=== PATIENT | female | born 1950 | race Caucasian/White ===

== ENCOUNTER 2020-01-06 07:51 | Outpatient (CLI) | payer MEDICARE, SELFPAY ==
[2020-01-06 08:08] LABS: Basophils Absolute Auto 0.1 K/mm3 (0.0-0.1); Basophils Percent Auto 1.3 % (0.2-1.2); Eosinophils Absolute Auto 0.2 K/mm3 (0-0.3); Eosinophils Percent Auto 4.4 % (0-4.4); Hematocrit 39.4 % (37.0-47.0); Hemoglobin 13.2 g/dL (12.0-15.0); Immature Granulocyte Absolute 0.01 K/mm3 (0.00-0.031); Immature Granulocyte Percent A 0.3 % (0-0.5); Lymphocytes Absolute Auto 1.28 K/mm3 (0.9-3.2); Lymphocytes Percent Auto 32.9 % (18.3-44.2); Mean Corpuscular HGB Conc 33.5 g/dl (32-36); Mean Corpuscular Volume 95.4 fl (80-100); Mean Platelet Volume 9.6 fl (7.4-10.4); Monocytes Absolute Auto 0.5 K/mm3 (0.1-0.6); Monocytes Percent Auto 13.1 % (2.6-8.5); Neutrophils Absolute Auto 1.9 K/mm3 (1.3-6.7); Platelet Count Result 172 k/mm3 (150-375); Red Blood Count 4.13 M/mm3 (4.2-5.4); Red Cell Distribution Width 13.2 % (11.5-14.5); White Blood Count 3.9 K/mm3 (4.5-10.0)
[2020-01-06 08:21] LABS: Alanine Aminotransferase 28 U/L (4-35); Albumin Level 4.6 g/dL (3.5-5.1); Alkaline Phosphatase 57 U/L (38-126); Amylase 65 U/L (30-110); Aspartate Amino Transferase 27 U/L (14-36); Bilirubin,Total 0.6 mg/dL (0.2-1.3); Blood Urea Nitrogen 11 mg/dL (7-17); Calcium 9.9 mg/dL (8.4-10.2); Carbon Dioxide 29 mmol/L (22-30); Chloride 103 mmol/L (98-107); Estimated Glomerular Filt Rate > 60; Glucose 110 mg/dL (65-105); Lipase 47 U/L (23-300); Potassium 4.3 mmol/L (3.4-5.0); Sodium 137 mmol/L (137-145)
[2020-01-06 08:36] LABS: Erythrocyte Sedimentation Rate 25 mm/hr (0-20)
== END 2020-01-06 07:52 | disposition home or self-care (01) ==
LOC: ANHLAB 07:53
PROVIDERS: PCP Internal Medicine; Visit Provider Clinical Nurse Specialist
DX: R19.7 Diarrhea, unspecified (principal); E55.9 Vitamin D deficiency, unspecified; I10 Essential (primary) hypertension
CPT/HCPCS: 36415; 80053; 82150; 82306; 83690; 84443; 85025; 85652

== ENCOUNTER 2020-01-14 10:42 | Outpatient (CLI) | payer MEDICARE, SELFPAY ==
--- NOTE | ~2020-01-14 | CT_ITS ---
EXAMINATION: CT abdomen pelvis wo con DATE: 01/14/2020 11:28 INDICATION: Low abdominal pain. TECHNIQUE: Computed tomography (CT) of the abdomen and pelvis was performed without intravenous contr ast. Automated exposure control and iterative reconstruction technique were employed. The dose-length product was 525.00 mGy-cm. COMPARISON: CT abdomen and pelvis 10/31/2016 FINDINGS: The visualized portions of the lung bases demonstrate mild atelectasis and mild chronic emmie g disease. No pleural effusion. The heart size is normal. There are coronary artery calcifications. N o pericardial effusion. There is diffuse hepatic steatosis. The gallbladder, spleen, pancreas, adrena l glands, and kidneys are normal. There is no urolithiasis. There is diverticulosis of the colon with out evidence of diverticulitis. There are no dilated loops of bowel. The appendix is not visualized. There are no pathologically enlarged lymph nodes. There is no free intraperitoneal fluid. There is se jenna lumbar spondylosis. IMPRESSION: 1. Diffuse hepatic steatosis. Reviewed, dictated and finalized at location A.
== END 2020-01-14 10:43 | disposition home or self-care (01) ==
PROVIDERS: PCP Internal Medicine; Visit Provider Clinical Nurse Specialist
DX: R10.9 Unspecified abdominal pain (principal); K76.0 Fatty (change of) liver, not elsewhere classified
CPT/HCPCS: 74176

== ENCOUNTER 2020-03-12 07:39 | Inpatient (IN) | payer MEDICARE, SELFPAY ==
[2020-03-12] VITALS (13 sets, daily range): BP systolic 91–135; BP diastolic 52–77; PULSE 72–82; RESP 16–28; TEMP 36.6–39.2; O2SAT 78–99; BMI 29.2
--- NOTE | 2020-03-12 08:04 | ED.NAVMDI ---
HPI - Nausea/Vomiting/Diarrhea General Chief complaint: Nausea/Vomiting/Diarrhea Stated complaint: COVID +, n/v, weak Time Seen by Provider: 03/12/20 07:51 History of Present Illness HPI Narrative: Patient is a 69-year-old female who presents ER with nausea and vomiting. Patient reports she started having the symptoms yesterday and is also associated with loose stools. Patient also reports being symptomatic for COVID for the last 10 days and being positive for the last week. She has had runny nose with sore throat and some cough. She has had fevers previously. She has no shortness of breath. Patient unsure why she is getting nauseated and throwing up. She has not found any medications to help this. Related Data Home Medications Medication Instructions Recorded Confirmed calcium polycarbophil [FiberCon] 1,250 mg PO BID 03/12/20 03/12/20 Allergies Allergy/AdvReac Type Severity Reaction Status Date / Time azithromycin Allergy Unknown rash Verified 03/12/20 07:56 Review of Systems Review of Systems: All systems reviewed & are unremarkable except as noted in HPI and below Constitutional: Constitutional: Denies chills, Reports fever(s) and Reports weakness ENT: Reports nasal congestion and Reports sore throat Respiratory: Respiratory: Reports cough, Denies dyspnea and Denies wheezing Gastrointestinal: Gastrointestinal: Denies abdominal pain, Reports diarrhea, Reports nausea and Reports vomiting PMFSH Past Medical History Medical History (Updated 03/12/20 @ 19:20 by Hira Lopez MD) Colon polyps COVID-19 Degenerative joint disease Diverticulitis Essential hypertension History of basal cell cancer Hyperlipidemia Osteopenia Skin cancer Surgical History Surgical History (Updated 03/12/20 @ 15:33 by Lyndsey Buckley PA-C) History of arthroplasty of right knee (~2011) History of arthroscopy of right knee History of foot surgery (~02/2011) Right calcaneus fracture status post reduction and percutaneous fixation with subsequent hardware removal. History of tonsillectomy History of total hysterectomy with bilateral salpingo-oophorectomy (BSO) (~1998) History of tubal ligation Family History Family History Mother Hypertension Sibling Patient's brother is in good health Father Family history of malignant neoplasm of brain, Onset Age: 34 Social History Social History (Updated 03/12/20 @ 15:34 by Lyndsey Buckley PA-C) Social History: Surrogate decision maker: Code status: Smoking packs per day: 1 Smoking cigarettes per day: 20.0 Years smoked: 25 Smoking pack-years: 25.00 Smoking status: Former smoker Smoking end date: 07/09/95 Alcohol intake: current Drinks per week: 3 Substance use: never Additional living arrangements comments: Lives in [place] with her spouse. Spiritual care concerns: No Exam Narrative: Exam Narrative: GENERAL: Well-appearing, well-nourished, and in no acute distress. HEAD: Normocephalic, atraumatic. ENT: Mucous membranes moist. CHEST: Clear to auscultation. No respiratory distress. HEART: Regular rate and rhythm. Normal peripheral pulses. ABDOMEN: Soft, nontender, nondistended. EXTREMITIES: Normal range of motion. No edema. NEURO: Alert and oriented x3. PSYCH: Normal mood and affect. Course Course Emergency Course: Admit to the hospitalist service. Patient with profound dehydration as well as hyponatremia. Vital Signs Vital signs: Vital Signs Temperature 98.6 F 03/12/20 07:49 Pulse Rate 80 03/12/20 07:49 Respiratory Rate 16 03/12/20 07:49 Blood Pressure 131/60 03/12/20 07:49 Pulse Oximetry 99 03/12/20 07:49 Temperature 98 F 03/12/20 16:54 Pulse Rate 72 03/12/20 16:54 Respiratory Rate 18 03/12/20 16:54 Blood Pressure 110/59 L 03/12/20 16:54 Pulse Oximetry 98 03/12/20 16:54 MDM - Nausea/Vomiting/Diarr
[2020-03-12 08:10] LABS: Basophils Percent Auto 0.3 % (0.2-1.2); Hematocrit 36.9 % (37.0-47.0); Hemoglobin 13.1 g/dL (12.0-15.0); Immature Granulocyte Absolute 0.02 K/mm3 (0.00-0.031); Immature Granulocyte Percent A 0.7 % (0-0.5); Immature Platelet Fraction Pct 6.2 % (0.9-11.2); Lymphocytes Absolute Auto 0.47 K/mm3 (0.9-3.2); Lymphocytes Percent Auto 15.8 % (18.3-44.2); Mean Corpuscular HGB Conc 35.5 g/dl (32-36); Mean Corpuscular Hemoglobin 31.7 pg (26-34); Mean Corpuscular Volume 89.3 fl (80-100); Mean Platelet Volume 10.8 fl (7.4-10.4); Monocytes Absolute Auto 0.4 K/mm3 (0.1-0.6); Monocytes Percent Auto 13.4 % (2.6-8.5); Neutrophils Absolute Auto 2.1 K/mm3 (1.3-6.7); Neutrophils Percent Auto 69.8 % (45.5-73.1); Platelet Count Result 142 k/mm3 (150-375); Red Blood Count 4.13 M/mm3 (4.2-5.4); Red Cell Distribution Width 13.3 % (11.5-14.5)
[2020-03-12 08:22] LABS: Alanine Aminotransferase 24 U/L (4-35); Albumin Level 3.9 g/dL (3.5-5.1); Alkaline Phosphatase 65 U/L (38-126); Anion Gap 13 mmol/L (8-16); Aspartate Amino Transferase 29 U/L (14-36); Bilirubin,Total 0.7 mg/dL (0.2-1.3); Blood Urea Nitrogen 25 mg/dL (7-17); Calcium 8.8 mg/dL (8.4-10.2); Carbon Dioxide 21 mmol/L (22-30); Chloride 88 mmol/L (98-107); Estimated CRCL calculation 35 ml/min; Estimated Glomerular Filt Rate 44; Glucose 109 mg/dL (65-105); Lipase 42 U/L (23-300); Potassium 3.5 mmol/L (3.4-5.0); Sodium 122 mmol/L (137-145)
[2020-03-12 08:30] LABS: Add Urine Microscopic? YES; Appearance Urine Clear (Clear); Bilirubin Urine Negative (Negative); Blood Urine Negative (Negative); Color Urine Yellow (Yellow); Glucose Urine UA Negative (Negative); Hyaline Casts Urine 50+ /lpf; Ketones Urine Trace mg/dL (Negative); Leukocyte Esterase Ur Negative LEU/UL (Negative); Mucus Urine Rare /lpf; Nitrate Urine Negative (Negative); Protein Urine Negative (Negative); Specific Grav Ur 1.013 (1.001-1.035); Squamous Epithelial Cell Urine Few /hpf (Few); Urobilinogen Urine Negative mg/dL (<2.0)
--- NOTE | 2020-03-12 12:14 | PC.NURSE ---
This patient, Emeli Talley, was admitted to [facility] Surg Room 327-01. Patient/family oriented to hospital policies and general routines including ID bracelet, bed and alarms, visiting hours, pain management, procedures, bathroom and other care routines, personal items, smoking policy, room service/diet, and visiting hours. Valuables list has been completed. Information on how to activate the Rapid Response Team has been discussed. Patient/Family are encouraged to report perceived risks to care and to ask questions if they do not understand what they are told or what they should do.
[2020-03-12] MEDS: SODIUM CHLORIDE 0.9% IV 1,000 ML 125 ML IV CONT (12:29)
[2020-03-12] MEDS: ACETAMINOPHEN 325 MG TABLET 650 MG PO ×2 (12:32→20:25)
[2020-03-12 17:25] LABS: Anion Gap 14 mmol/L (8-16); Blood Urea Nitrogen 25 mg/dL (7-17); Calcium 8.3 mg/dL (8.4-10.2); Carbon Dioxide 19 mmol/L (22-30); Chloride 92 mmol/L (98-107); Estimated CRCL calculation 46 ml/min; Estimated Glomerular Filt Rate > 60; Glucose 92 mg/dL (65-105); Magnesium 2.2 mg/dL (1.6-2.3); Potassium 3.8 mmol/L (3.4-5.0); Sodium 125 mmol/L (137-145)
[2020-03-12 17:34] LABS: CRP 18.9 mg/dL (<1.0)
[2020-03-12 18:08] LABS: Creatinine Urine 43.9 mg/dL
[2020-03-12 18:32] LABS: Sodium Urine Random 11 meq/L
--- NOTE | 2020-03-12 19:30 | PM.IMHP ---
H&P: HPI History of Present Illness Date/Time: 03/12/20 19:30 Chief complaint: Nausea, diarrhea, weakness. Narrative: Emeli Talley is a 69-year-old female with hypertension who presented to the emergency department earlier today with complaints of nausea, diarrhea, and weakness. She is alert and oriented x4 but seems to have a difficult time giving me a timeline for when she began having symptoms. From what I can gather it sounds as though she has not felt well for at least 7 if not 10 days, with symptoms initially to include headache, sinus congestion, rhinorrhea, sore throat, and dry cough. Several days after symptom onset, she developed fevers which have persisted intermittently each day. She was reportedly seen at [facility] on Sunday and she was given prednisone for presumed bronchitis. She received a call I believe the next day that she had tested positive for COVID-19 and with further questioning she does mention that several of her friends apparently had tested positive as well. She denies anosmia and dysgeusia but tells me she just does not have an appetite. Over the last several days she has developed loose stools, perhaps 3 to 4 times per day. Unfortunately she has gotten progressively more weak and thus she came in for evaluation. She was quite dehydrated, and is being admitted in this setting. At the time my evaluation she has no new complaints and specifically denies neck ache, productive cough, chest pain, palpitations, abdominal pain, epigastric pain, vomiting, and dysuria. Review of Systems Review of Systems: Narrative: Twelve systems were reviewed with pertinent positives and negatives as per HPI. Except as documented, all other systems were reviewed and are negative. [facility] Past Medical History Medical History (Updated 03/12/20 @ 22:08 by Lyndsey Buckley PA-C) Colon polyps COVID-19 (~03/2020) Degenerative joint disease Diverticulitis Essential hypertension History of basal cell cancer Hyperlipidemia Melanoma Osteopenia Surgical History Surgical History (Updated 03/12/20 @ 22:08 by Lyndsey Buckley PA-C) History of arthroplasty of right knee (~2011) History of arthroscopy of right knee History of foot surgery (~02/2011) Right calcaneus fracture status post reduction and percutaneous fixation with subsequent hardware removal. History of melanoma excision History of tonsillectomy History of total hysterectomy with bilateral salpingo-oophorectomy (BSO) (~1998) History of tubal ligation Family History Family History Mother Hypertension Sibling Patient's brother is in good health Father Family history of malignant neoplasm of brain, Onset Age: 34 Social History Social History (Updated 03/12/20 @ 22:09 by Lyndsey Buckley PA-C) Social History: Surrogate decision maker: Brie Morris, daughter. Code status: Full code. Smoking packs per day: 1 Smoking cigarettes per day: 20.0 Years smoked: 25 Smoking pack-years: 25.00 Smoking status: Former smoker Smoking end date: 07/09/95 Alcohol intake: current Drinks per week: 3 Substance use: never Additional living arrangements comments: Lives in [place] in her own home. Additional occupation/education comments: Retired. Spiritual care concerns: No Meds Home Medications and Allergies Home Medications Medication Instructions Recorded Confirmed Type lisinopril 10 mg tablet 10 mg PO DAILY #90 tablet 08/21/19 03/12/20 Rx calcium polycarbophil [FiberCon] 1,250 mg PO BID 03/12/20 03/12/20 History Allergies Allergy/AdvReac Type Severity Reaction Status Date / Time azithromycin Allergy Unknown rash Verified 03/12/20 07:56 Vital Signs Vital Signs - 24 hr 03/12/20 07:49 03/12/20 07:52 03/12/20 07:53 Temperature 98.6 F Pulse Rate 80 80 82 Respiratory Rate 16 Blood Pressure 131/60 123/66 99/57 L Pulse Oxi
[2020-03-12] MEDS: SODIUM CHLORIDE 0.9% IV 1,000 ML 75 ML IV CONT (22:34)
[2020-03-12 22:39] LABS: Sodium 127 mmol/L (137-145)
[2020-03-13] VITALS (10 sets, daily range): BP systolic 79–127; BP diastolic 50–63; PULSE 66–83; RESP 18–24; TEMP 36.2–37.2; O2SAT 94–98
[2020-03-13] MEDS: guaiFENesin/DEXTROMETHORPHAN 10 ML UDC 5 ML PO ×2 (00:51→20:56)
[2020-03-13 03:16] LABS: Basophils Percent Auto 0.7 % (0.2-1.2); Hematocrit 33.8 % (37.0-47.0); Hemoglobin 11.8 g/dL (12.0-15.0); Immature Granulocyte Absolute 0.02 K/mm3 (0.00-0.031); Immature Granulocyte Percent A 0.7 % (0-0.5); Immature Platelet Fraction Pct 4.4 % (0.9-11.2); Lymphocytes Absolute Auto 0.99 K/mm3 (0.9-3.2); Lymphocytes Percent Auto 35.5 % (18.3-44.2); Mean Corpuscular HGB Conc 34.9 g/dl (32-36); Mean Corpuscular Hemoglobin 31.9 pg (26-34); Mean Corpuscular Volume 91.4 fl (80-100); Mean Platelet Volume 10.5 fl (7.4-10.4); Monocytes Absolute Auto 0.5 K/mm3 (0.1-0.6); Monocytes Percent Auto 17.2 % (2.6-8.5); Neutrophils Absolute Auto 1.3 K/mm3 (1.3-6.7); Neutrophils Percent Auto 45.9 % (45.5-73.1); Platelet Count Result 142 k/mm3 (150-375); Red Cell Distribution Width 13.6 % (11.5-14.5); White Blood Count 2.8 K/mm3 (4.5-10.0)
[2020-03-13 03:28] LABS: Anion Gap 10 mmol/L (8-16); Blood Urea Nitrogen 20 mg/dL (7-17); Carbon Dioxide 21 mmol/L (22-30); Chloride 97 mmol/L (98-107); Estimated CRCL calculation 51 ml/min; Estimated Glomerular Filt Rate > 60; Glucose 90 mg/dL (65-105); Potassium 4.2 mmol/L (3.4-5.0); Sodium 128 mmol/L (137-145)
[2020-03-13 06:36] LABS: Sodium 127 mmol/L (137-145)
[2020-03-13 11:05] LABS: Sodium 126 mmol/L (137-145)
[2020-03-13] MEDS: SODIUM CHLORIDE 0.9% IV 1,000 ML 75 ML IV CONT (11:17)
--- NOTE | 2020-03-13 15:18 | PM.IMPN ---
Progress Note: A&P Assessment and Plan (1) Dehydration: Code(s): E86.0 - Dehydration Status: Acute Assessment and Plan: Secondary to poor oral intake over the past week or more. Creatinine has normalized with IV fluid rehydration. continue gentle IV fluids. (2) Orthostatic hypotension: Code(s): I95.1 - Orthostatic hypotension Status: Acute Assessment and Plan: Secondary to volume depletion. Patient had significant drop in systolic blood pressure when transitioning from supine to sitting position this afternoon and was symptomatic at that time. Initiate fall precautions and monitor orthostatic vitals each shift Lisinopril on hold at this time. Will add Joseph hose (3) Hyponatremia: Code(s): E87.1 - Hypo-osmolality and hyponatremia Status: Acute Assessment and Plan: Secondary to profound dehydration. sodium 122 at presentation. Levels improved with IV fluid rehydration and are remaining stable at 126-127 at this time. Continue to monitor sodium levels closely as to avoid overcorrection. Continue gentle IV fluid hydration. (4) COVID-19: Onset Date: ~03/2020 Code(s): U07.1 - COVID-19 Status: Acute Assessment and Plan: She reportedly tested positive for such earlier this week at urgent care. Not a candidate for remdesivir or dexamethasone at this time as she has no oxygen requirement. Continue isolation precautions Records have been requested from [facility] Supportive care as needed. Subjective Date/time seen: 03/13/20 15:18 Interval history: Date of service: 03/13/2020 Ms. Talley is a 69-year-old female with a history of hypertension, hyperlipidemia, and melanoma who is seen in follow-up for weakness which is felt to be secondary to dehydration and COVID-19. She is feeling better today. She still feels run down and weak. At rest she denies any dizziness or lightheadedness but upon positional changes, she does endorse lightheadedness. She reports she has had better oral intake today and no longer feels nauseous. She has not vomited. She denies fevers, chills, or body aches. She has no shortness of breath, cough, orthopnea, SANTO, chest pain, or palpitations. She denies dysuria or hematuria. She has not had any episodes of diarrhea. She has no additional concerns at this time. Review of Systems Review of Systems: Narrative: A 12 point review of systems was reviewed with pertinent positives and negatives as per HPI. Exam Narrative: Exam Narrative: Mrs. Talley is a well-nourished 69-year-old female who is lying semi recumbent in bed. She appears comfortable and is in no acute respiratory distress. HR 79, BP 105/60, RR 20, T 98.1?, 98% on room air Neuro: awake, alert and oriented x4, speech clear, no focal neuro deficits noted, bilateral eyeletter strength equal HEENMT: normocephalic, atraumatic, EOMI, sclerae anicteric, moist oral mucosa, tongue midline, nares patent Neck: supple, no lymphadenopathy Respiratory: clear to auscultation bilaterally, nonlabored breathing Cardio: regular rate, regular rhythm with S1-S2 Abdomen: nondistended, normoactive bowel sounds, soft, nontender to palpation Extremities: no edema, erythema,, cyanosis, clubbing, or tenderness to palpation, DP pulses 2+ bilaterally Skin: no rashes or lesions, warm and dry Psych: appropriate mood and affect, judgment and insight intact Objective Data Vital Signs Vital Signs: Vital Signs - 24 hr 03/12/20 16:54 03/12/20 20:25 03/12/20 22:34 Temperature 98 F 102.6 F H 99.8 F H Pulse Rate 72 79 Respiratory Rate 18 28 H Blood Pressure 110/59 L 135/55 L Pulse Oximetry 98 96 03/13/20 00:00 03/13/20 03:45 03/13/20 03:48 Temperature 98.0 F 98.1 F Pulse Rate 70 72 83 Respiratory Rate 24 H 20 Blood Pressure 115/61 127/63 125/57 L Pulse Oximetry 96 97 97 03/13/20 03:50 03/13/20 08:00 03/13/20 12:45 Tem[place]a
[2020-03-13 15:20] LABS: Sodium 127 mmol/L (137-145)
[2020-03-13 18:49] LABS: Sodium 128 mmol/L (137-145)
[2020-03-13] MEDS: ACETAMINOPHEN 325 MG TABLET 650 MG PO (20:50)
[2020-03-13 22:52] LABS: Sodium 129 mmol/L (137-145)
[2020-03-14] VITALS: BP 112/58; PULSE 66; RESP 18; TEMP 36.8; O2SAT 93
[2020-03-14] MEDS: SODIUM CHLORIDE 0.9% IV 1,000 ML 75 ML IV CONT (01:30)
[2020-03-14 04:00] VITALS: BP 132/60; PULSE 57; RESP 16; TEMP 36.8; O2SAT 99
[2020-03-14] MEDS: ACETAMINOPHEN 325 MG TABLET 650 MG PO (06:21)
[2020-03-14] MEDS: guaiFENesin/DEXTROMETHORPHAN 10 ML UDC 5 ML PO (06:29)
[2020-03-14 06:53] LABS: Hematocrit 30.6 % (37.0-47.0); Hemoglobin 10.6 g/dL (12.0-15.0); Mean Corpuscular HGB Conc 34.6 g/dl (32-36); Mean Corpuscular Hemoglobin 31.5 pg (26-34); Mean Corpuscular Volume 90.8 fl (80-100); Mean Platelet Volume 9.9 fl (7.4-10.4); Platelet Count Result 147 k/mm3 (150-375); Red Blood Count 3.37 M/mm3 (4.2-5.4); Red Cell Distribution Width 13.9 % (11.5-14.5); White Blood Count 2.4 K/mm3 (4.5-10.0)
[2020-03-14 07:04] LABS: Anion Gap 6 mmol/L (8-16); Blood Urea Nitrogen 9 mg/dL (7-17); Calcium 7.6 mg/dL (8.4-10.2); Carbon Dioxide 23 mmol/L (22-30); Chloride 104 mmol/L (98-107); Estimated CRCL calculation 66 ml/min; Estimated Glomerular Filt Rate > 60; Glucose 102 mg/dL (65-105); Potassium 3.4 mmol/L (3.4-5.0); Sodium 133 mmol/L (137-145)
[2020-03-14 08:00] VITALS: BP 113/55; PULSE 70; RESP 18; TEMP 37; O2SAT 97
[2020-03-14 08:05] VITALS: BP 113/53; PULSE 70; RESP 18; O2SAT 96
[2020-03-14 08:10] VITALS: BP 103/55; PULSE 69; RESP 18; O2SAT 98
[2020-03-14] MEDS: ENOXAPARIN 40 MG/0.4 ML SYRINGE SUB-Q (08:31)
[2020-03-14 09:12] LABS: Iron 53 ug/dL (37-170)
[2020-03-14 09:21] LABS: Percent Iron Saturation 24 % (20-50)
[2020-03-14 09:39] LABS: Folic Acid 16.8 ng/mL (2.76->20)
--- NOTE | 2020-03-14 11:57 | PM.DS ---
DS: Admitting Diagnosis Admitting Diagnosis Admitting Diagnosis: Nausea, diarrhea, weakness. DS: Discharge Diagnosis Discharge Diagnosis (1) Dehydration: Code(s): E86.0 - Dehydration Status: Acute Assessment and Plan: Patient has had poor oral intake over the past week or so, most likely secondary to acute viral illness. She was rehydrated with IV fluids. Creatinine improved with rehydration. Discussed importance of maintaining adequate hydration at home. (2) Orthostatic hypotension: Code(s): I95.1 - Orthostatic hypotension Status: Acute Assessment and Plan: Secondary to volume depletion. Orthostatic blood pressures were monitored each shift and showed improvement with rehydration. She was no longer orthostatic on day of discharge. Her lisinopril was held during her stay. Blood pressures were low-normal in the 110-120s systolic and lisinopril was held at discharge. Patient was instructed to monitor her blood pressure at home daily and record readings. She was instructed to call her PCP if blood sugar was running >150 and to take her lisinopril in that event. (3) Hyponatremia: Code(s): E87.1 - Hypo-osmolality and hyponatremia Status: Acute Assessment and Plan: Secondary to profound dehydration. Sodium was 122 at presentation. Sodium levels improved steadily at an appropriate rate and was 133 at time of discharge. Adequate hydration was discussed. (4) COVID-19: Onset Date: ~03/2020 Code(s): U07.1 - COVID-19 Status: Acute Assessment and Plan: She reportedly tested positive for such earlier this week at [place] urgent [facility]. Patient believes symptom onset was 7-10 days prior and she felt weak, fatigued, and had poor appetite.. She was maintaining adequate oxygenation on room air. She was not a candidate for Remdesivir or dexamethasone as she had no oxygen requirements. She had a fever of 102.6 on 03/12/2020 that resolved with acetaminophen and she had no additional fevers. She has been instructed to monitor her temperature at home and take Tylenol as needed. She had no respiratory symptoms. DS: Summary Hospital Course Reason for hospitalization: Weakness Hospital Course: Date of admission: 03/12/2020 Date of discharge: 03/14/2020 Emeli Smith is a 69-year-old female with a history of hypertension who presented to the emergency department on 03/12/2020 with complaints of nausea, diarrhea, weakness, and feeling generally unwell for 7-10 days. She complained of intermittent fevers. She was seen at [place] urgent [facility] on 03/08 and treated with prednisone for suspected bronchitis, and supposedly tested positive for COVID-19 at that time. At presentation, vital signs stable, afebrile, WBC 3.0, platelets 142, sodium 112, BUN 25, creatinine 0.9, and urinalysis unremarkable. She was admitted to the hospitalist service for further evaluation and management. Please see above for further details. She was rehydrated with IV fluids and began feeling significantly improved. Nausea resolved. Patient did not have any diarrhea. Her oral intake improved. Blood pressures increased with rehydration. She began feeling better and requested discharge home. Given her overall improvement and adequate rehydration, she was determined to no longer require inpatient care. We discussed worrisome signs and symptoms for which she should return and spent extensive time discussing precautions for preventing/slowing the spread of COVID-19.. She was educated on her medication changes. All questions were answered. She was discharged in hemodynamically stable condition on 03/14/2020. Status at Discharge Functional status at discharge: independent ambulation Overall status at discharge: patient is back to baseline Time Spent with Patient Time attestation: Total time spent providing and/or coordinating discharge services: 38 minutes Time spent: Greater
[2020-03-14 12:00] VITALS: BP 127/54; PULSE 72; RESP 18; TEMP 36.2; O2SAT 96
== END 2020-03-14 13:00 | disposition home or self-care (01) | DRG 178 ==
LOC: ANHED 07:51 → ANH3MEDSUR 11:55
PROVIDERS: Physician Assistant; Admitting Provider Internal Medicine; Emergency Provider Emergency Medicine; PCP Family Medicine; Visit Provider Physician Assistant
DX: U07.1 COVID-19 (principal); D61.818 Other pancytopenia; E87.1 Hypo-osmolality and hyponatremia; E86.0 Dehydration; I95.1 Orthostatic hypotension; I10 Essential (primary) hypertension; E78.5 Hyperlipidemia, unspecified; Z96.651 Presence of right artificial knee joint; M85.80 Other specified disorders of bone density and structure, unspecified site; Z79.899 Other long term (current) drug therapy; Z85.820 Personal history of malignant melanoma of skin; Z87.891 Personal history of nicotine dependence
CPT/HCPCS: 36415; 80048; 80053; 81001; 82570; 82607; 82728; 82746; 83540; 83550; 83690; 83735; 83930; 84295; 84300; 85025; 85027; 85055; 86140; 87077; 87086; 87088; 87186; 99285; A9270; G0378; J1650; J7030

== ENCOUNTER 2020-12-07 12:38 | Outpatient (CLI) | payer MEDICARE, SELFPAY ==
--- NOTE | 2020-12-07 16:22 | WPDPFTINT ---
PFT Procedure Performed PFT Procedure Performed Spirometry with Pre/Post Bronchodilator Plethysmography (Lung Vol) Diffusing Cap (DLCO) Flow Vol Loop PFT Interpretation This is a pulmonary function test with pre and post-bronchodilator spirometry, plethysmography and diffusing capacity. The test was performed and results interpreted in accordance with the 2019 and 2005 ATS/ERS Task Force guidelines respectively using the Global Lung Function Initiative-2012 reference equations. Patient demonstrated good effort and cooperation. Reproducibility criteria were met. The quality of the pre bronchodilator spirometry maneuver was Grade A and post bronchodilator spirometry maneuver was Grade A. Findings: Spirometry: The contour the inspiratory and expiratory flow tracing are normal. The pre bronchodilator FVC is 2.83 L, 112% predicted. The pre bronchodilator FEV1 is 2.21 L, 112% predicted. The FEV1: FVC ratio 78. The post bronchodilator FVC is 2.73 L, representing a 4% decrease. The post bronchodilator FEV1 is 2.21 L, representing no change. Plethysmography: The total lung capacity is 4.73 L, 103% predicted. The functional residual volume is 2.38 L, 91% predicted. The residual volume is 1.90 L, 92% predicted. Diffusion capacity: The absolute diffusion capacity is 14.4, 75% predicted. The diffusing capacity corrected for alveolar volume is 3.56, 81% predicted. In comparison to the most recent pulmonary function test in our laboratory performed on 07/27/2015 in which only pre bronchodilator dilator spirometry was measured the FVC is unchanged from 2.81 L to 2.83 L. The pre bronchodilator FEV1 is unchanged from 2.19 L to 2.21 L. The total lung capacity is unchanged from 5.14 L to 4.73 L. The functional residual capacity is unchanged from 2.73 L to 2.38 L. The residual volume is decreased from 2.32 L to 1.90 L. The absolute diffusion capacity is decreased from 19.9 to 14.4 and the diffusing capacity corrected for alveolar volume is unchanged from 4.07 to 3.56. Impression: The spirometry is normal without evidence of an obstructive abnormality. There is no significant improvement after inhaling a single dose of albuterol. The lung volumes are normal. The diffusing capacity is normal. In comparison to previous pulmonary function test on 07/27/2015 there has been a greater than anticipated time dependent decrease in residual volume and absolute diffusing capacity without a significant change in FVC, FEV1, total lung capacity, functional residual capacity and the diffusing capacity corrected for alveolar volume. Clinical correlation is recommended.
== END 2020-12-07 12:39 | disposition home or self-care (01) ==
PROVIDERS: PCP Family Medicine; Visit Provider Student in an Organized Health Care Education/Training Program
DX: J42 Unspecified chronic bronchitis (principal)
CPT/HCPCS: 94060; 94726; 94729

== ENCOUNTER → 2021-07-11 01:31 | Outpatient (CLI) | payer MEDICARE, OTHER, SELFPAY ==
[2021-07-11 21:23] LABS: SARS-CoV-2 RNA PCR Negative
== END ==
PROVIDERS: PCP Family Medicine; Visit Provider Physician Assistant
DX: R05.9 Cough, unspecified (principal); Z20.822 Contact with and (suspected) exposure to COVID-19
CPT/HCPCS: C9803; U0003; U0005

== ENCOUNTER 2022-04-13 07:31 | Outpatient (CLI) | payer MEDICARE, OTHER, SELFPAY ==
--- NOTE | 2022-05-05 12:53 | WPDSLEEPSTUD ---
Sleep Study Date of Study: 04/13/22 Ordering Provider: Gm Keith MD Interpreting Physician: Kim De Los Santos MD Sleep Study Type: Polysomnogram Height: 1.52 m Weight: 72.575 kg Body Mass Index: 31.2 Neck Circumference (inches): 15.5 [place]: 4 Reason for Sleep Study Poor sleep for 5 years, frequent urination at night Sleep History more in the [place] is a 71-year-old female with a history of poor sleep for at least 5 years. She urinates frequently at night. Last summer, she had a home sleep test that showed [id number] sleep apnea. She has an appliance that she has been using for approximately a year. She rarely awakens feeling short of breath. She occasionally awakens at night with heartburn, belching or coughing. He occasionally snores and occasionally this is loud enough that others complain about it. She occasionally has trouble sleeping when she has a cold. She rarely wakes up gasping for breath at night. She rarely has breathing problems at night observed by others. She occasionally sweats excessively at night. She does not notice her heart pounding or beating irregularly at night. She rarely falls asleep during the day, rarely falls asleep involuntarily, never falls asleep while driving. She does not have loss of muscle tone with strong emotion. She does not have daytime difficulties due to excessive sleepiness. She does not feel paralyzed on waking or falling asleep. She rarely has vivid dreamlike scenes on waking or falling asleep. She does not feel afraid to go to sleep. She denies having nightmares. She occasionally remembers her dreams. She does not have racing thoughts, feelings of sadness or depression, rarely has anxiety. She rarely has muscular tension. She rarely notices parts of her body jerking. She does not kick at night or have crawling or aching feelings in her legs at night. She she rarely has any kind of leg pain at night. She does not have morning jaw pain. She frequently grinds her teeth at night. She is not bothered by pain during the day or awakened by pain at night. She does not wake up feeling stiff in the morning with sore achy muscles. She occasionally wakes up with pain in the neck and spine. Normal bedtime is 9:00 p.m., and does not take long for her to fall asleep. She typically wakes up 2-3 times during the night to go to the bathroom and then will try to return to sleep. If she is not able to return to sleep she turns on the television. She may stay awake for 1-2 hours at night. She does not take naps in the afternoon or evening. A short nap may be refreshing. She is usually drowsy on waking for 3 hours or longer. Habits: She quit tobacco 1995. Caffeine 2 cups in the morning. Alcohol 2 servings on 5 days out of the week. No recreational drugs PMFSH Past Medical History Medical History Colon polyps COVID-19 (~03/2020) Degenerative joint disease Diverticulitis Essential hypertension History of basal cell cancer Hyperlipidemia Left knee DJD Melanoma Osteopenia Stress fracture, right foot, subsequent encounter for fracture with routine healing Surgical History Surgical History History of arthroplasty of right knee (~2011) History of arthroscopy of right knee History of foot surgery (~02/2011) Right calcaneus fracture status post reduction and percutaneous fixation with subsequent hardware removal. History of melanoma excision History of tonsillectomy History of total hysterectomy with bilateral salpingo-oophorectomy (BSO) (~1998) History of tubal ligation Family History Family History Mother Hypertension Sibling Patient's brother is in good health Father Family history of malignant neoplasm of brain, Onset Age: 34 Social History Social History (Reviewed 05/05/22 @ 12:53
[2022-05-05 13:16] VITALS: BMI 31.2
== END 2022-04-14 06:12 | disposition home or self-care (01) ==
PROVIDERS: PCP Family Medicine; Visit Provider Otolaryngology
DX: G47.33 Obstructive sleep apnea (adult) (pediatric) (principal)
CPT/HCPCS: 95810

== ENCOUNTER 2022-06-06 01:18 | Day surgery (SDC) | payer MEDICARE, OTHER, SELFPAY ==
[2022-05-22 15:11] VITALS: BMI 31.4
[2022-06-06 06:57] VITALS: BP 124/62; PULSE 79; RESP 18; TEMP 36.4; O2SAT 98
[2022-06-06] MEDS: LACTATED RINGERS 1,000 ML 150 ML IV CONT (07:05)
--- NOTE | 2022-06-06 07:21 | WPDANESEPPF ---
Anes - Initial Pre Proc Eval Procedure: Operation Date: 06/06/22 08:00 Proposed Procedures p Screening Colonoscopy - Kamaljit Foley MD Date/Time: 06/06/22 07:21 Surgeon: Kamaljit Foley MD Pre Op Diagnosis: Hx of colon polyps Patient Data Age: 71 Gender: F Height: 1.52 m Weight: 73.1 kg Last Vital Signs Temp 36.4 C 06/06/22 06:57 Pulse 79 06/06/22 06:57 Resp 18 06/06/22 06:57 BP 124/62 06/06/22 06:57 Pulse Ox 98 06/06/22 06:57 O2 Del Method Room Air 06/06/22 06:57 Allergies Allergy/AdvReac Type Severity Reaction Status Date / Time azithromycin Allergy Unknown rash Verified 06/06/22 06:53 Home Medications Medication Instructions Recorded Confirmed Type omeprazole 20 mg capsule,delayed 20 mg PO DAILY 03/17/21 05/29/22 History release fluticasone propionate 50 1 spray intranasal DAILY 05/19/21 05/29/22 History mcg/actuation nasal spray,suspension (Allergy Relief (fluticasone)) glucosamine-chondroitin 250 mg-200 2 tablet PO TID 08/01/21 05/29/22 History mg tablet (Osteo Bi-Flex) [id number] 18 mg-FA 400 1 tablet PO DAILY 08/01/21 05/29/22 History mcg-calcium 500 mg-vit K 50 mcg tablet (Women's Multivitamin) peppermint oil 90 mg 90 mg PO BID 08/01/21 05/29/22 History capsule,delayed,extended release (IBgard) calcium carbonate 400 mg calcium 400 mg PO BID 12/02/21 05/29/22 History (1,000 mg) chewable tablet (Tums Ultra) atorvastatin 10 mg tablet 10 mg PO QHS #90 tabs 03/01/22 05/29/22 Rx losartan 50 mg tablet 25 mg PO DAILY 05/22/22 05/29/22 History apple cider vinegar 600 mg capsule 1,200 mg PO DAILY 05/29/22 06/06/22 History semaglutide (weight loss) 2.4 2.4 mg (0.75 mL) subcut WEEKLY #3 05/29/22 06/06/22 Rx mg/0.75 mL subcutaneous pen mL injector (August) Patient hx anesthesia problems: none Family hx anesthesia problems: none Results Review: All pre-operative results and documents have been reviewed as part of the pre-operative evaluation. [facility] Past Medical History Medical History Bruises easily Colon polyps Constipation Cough COVID-19 (~03/2020) Degenerative joint disease Diverticulitis Essential hypertension Headache History of basal cell cancer Hyperlipidemia IBS (irritable bowel syndrome) Left knee DJD Melanoma Osteopenia Stress fracture, right foot, subsequent encounter for fracture with routine healing Surgical History Surgical History History of arthroplasty of right knee (~2011) History of arthroscopy of right knee History of foot surgery (~02/2011) Right calcaneus fracture status post reduction and percutaneous fixation with subsequent hardware removal. History of melanoma excision History of tonsillectomy History of tooth extraction History of total hysterectomy with bilateral salpingo-oophorectomy (BSO) (~1998) History of tubal ligation Family History Family History Mother Hypertension Sibling Patient's brother is in good health Father Family history of malignant neoplasm of brain, Onset Age: 34 Social History Social History Social History: Surrogate decision maker: Brie Morris, daughter. Code status: Full code. Smoking packs per day: 1 Smoking cigarettes per day: 20.0 Years smoked: 25 Smoking pack-years: 25.00 Smoking status: Former smoker Tobacco type: cigarettes Smoking end date: 07/09/95 Alcohol intake: current Drinks per week: 3 Alcohol use details: drinks per week 10-12 Substance use: never Substance use type: does not use Lack of Transportation: No Lack of Food: Never True Current Housing: I Have Housing Concerned About Future Housing: No Difficulty Paying Gas/Electric Bills: No Difficulty Paying for M
--- NOTE | 2022-06-06 07:48 | PM.HPGS ---
History of Present Illness History of Present Illness Consent: Risks, benefits, and alternatives have been discussed and questions answered. Patient agrees to proceed with procedure. Chief complaint: Hx of colon polyps Narrative: Emeli Talley is a 71 year old female Presents for screening colonoscopy. Patient gives a history of colon polyps. Patient's current weight appetite bowel movements are normal. She denies abdominal pain. She has had no bleeding. She does have a tendency towards constipation which contributes to gas and bloating. She does take peppermint for irritable bowel some which she states helps to some degree. Review of records reveals a benign hyperplastic polyp removed from the colon [place] [address] Aggarwal. Review of Systems Review of Systems: Review of systems noncontributory. [facility] Past Medical History Medical History Bruises easily Colon polyps Constipation Cough COVID-19 (~03/2020) Degenerative joint disease Diverticulitis Essential hypertension Headache History of basal cell cancer Hyperlipidemia IBS (irritable bowel syndrome) Left knee DJD Melanoma Osteopenia Stress fracture, right foot, subsequent encounter for fracture with routine healing Surgical History Surgical History History of arthroplasty of right knee (~2011) History of arthroscopy of right knee History of foot surgery (~02/2011) Right calcaneus fracture status post reduction and percutaneous fixation with subsequent hardware removal. History of melanoma excision History of tonsillectomy History of tooth extraction History of total hysterectomy with bilateral salpingo-oophorectomy (BSO) (~1998) History of tubal ligation Family History Family History Mother Hypertension Sibling Patient's brother is in good health Father Family history of malignant neoplasm of brain, Onset Age: 34 Social History Social History Social History: Surrogate decision maker: Brie Morris, daughter. Code status: Full code. Smoking packs per day: 1 Smoking cigarettes per day: 20.0 Years smoked: 25 Smoking pack-years: 25.00 Smoking status: Former smoker Tobacco type: cigarettes Smoking end date: 07/09/95 Alcohol intake: current Drinks per week: 3 Alcohol use details: drinks per week 10-12 Substance use: never Substance use type: does not use Lack of Transportation: No Lack of Food: Never True Current Housing: I Have Housing Concerned About Future Housing: No Difficulty Paying Gas/Electric Bills: No Difficulty Paying for Meds: No Currently Unemployed: No Education: Associate Degree Difficulty w/ Childcare or Family Care: No Living arrangements: alone Additional living arrangements comments: Lives in [place] in her own home. Additional occupation/education comments: Retired. Spiritual care concerns: No Meds Home Medications and Allergies Home Medications Medication Instructions Recorded Confirmed Type omeprazole 20 mg capsule,delayed 20 mg PO DAILY 03/17/21 05/29/22 History release fluticasone propionate 50 1 spray intranasal DAILY 05/19/21 05/29/22 History mcg/actuation nasal spray,suspension (Allergy Relief (fluticasone)) glucosamine-chondroitin 250 mg-200 2 tablet PO TID 08/01/21 05/29/22 History mg tablet (Osteo Bi-Flex) ljgvmwcm-fab-jjsb 18 mg-FA 400 1 tablet PO DAILY 08/01/21 05/29/22 History mcg-calcium 500 mg-vit K 50 mcg tablet (Women's Multivitamin) peppermint oil 90 mg 90 mg PO BID 08/01/21 05/29/22 History capsule,delayed,extended release (IBgard) calcium carbonate 400 mg calcium 400 mg PO BID 12/02/21 05/29/22 History (1,000 mg) chewable tablet (Tums Ultra) atorvastatin 10 mg ta
[2022-06-06 08:25] VITALS: BP 104/43; PULSE 69; RESP 21; O2SAT 96
[2022-06-06 08:35] VITALS: BP 103/49; PULSE 68; RESP 21; O2SAT 97
[2022-06-06 08:45] VITALS: BP 105/63; PULSE 66; RESP 26; O2SAT 96
== END 2022-06-06 08:54 | disposition home or self-care (01) ==
PROVIDERS: PCP Family Medicine; Visit Provider Internal Medicine Gastroenterology
PROC: 0DJD8ZZ Inspection of Lower Intestinal Tract, Via Natural or Artificial Opening Endoscopic (ICD-10-PCS; CPT 45378; principal; 2022-06-06 08:00)
DX: Z12.11 Encounter for screening for malignant neoplasm of colon (principal); K62.1 Rectal polyp; K64.8 Other hemorrhoids; K57.30 Diverticulosis of large intestine without perforation or abscess without bleeding; I10 Essential (primary) hypertension; E78.5 Hyperlipidemia, unspecified; K58.9 Irritable bowel syndrome, unspecified; M85.80 Other specified disorders of bone density and structure, unspecified site; Z85.820 Personal history of malignant melanoma of skin; Z87.891 Personal history of nicotine dependence; Z79.899 Other long term (current) drug therapy
CPT/HCPCS: 45380; 88305; J2001; J2704; J7120

== ENCOUNTER 2022-11-20 07:16 | Outpatient (CLI) | payer MEDICARE, OTHER, SELFPAY ==
--- NOTE | ~2022-11-20 | CT_ITS ---
EXAMINATION: CT abdomen pelvis w con DATE: 11/20/2022 07:49 INDICATION: Unspecified abdominal pain. TECHNIQUE: Computed tomography (CT) of the abdomen and pelvis was performed with 100 mL Omnipaque 350 intravenous contrast. Automated exposure control and iterative reconstruction technique were employe d. The dose-length product was 573.17 mGy-cm. COMPARISON: CT abdomen and pelvis 01/14/2020 FINDINGS: The visualized portions of the lung bases demonstrate peripheral septal thickening, consist ent with mild chronic interstitial lung disease. No pleural effusion. Cardiomegaly is noted. There ar e coronary artery calcifications. No pericardial effusion. There is a 12 mm cyst in the liver. The ga llbladder is normal. There is mild splenomegaly measuring 14.9 cm. The pancreas, adrenal glands, and kidneys are normal. There is diverticulosis of the colon without evidence of diverticulitis. There ar e no dilated loops of bowel. The appendix is not visualized. There is calcified atherosclerosis of th e aorta and many of the other arteries. There are no pathologically enlarged lymph nodes. There is no free intraperitoneal fluid. There is lumbar levoscoliosis and severe lower lumbar spondylosis. There is moderate thoracic spondylosis. There is a chronic compression fracture of T8. IMPRESSION: 1. Mild splenomegaly. 2. Mild chronic interstitial lung disease. Reviewed, dictated and finalized at location A.
[2022-11-20 07:42] LABS: Estimated Glomerular Filt Rate > 60
== END 2022-11-20 07:17 | disposition home or self-care (01) ==
LOC: ANHIMG 07:20
PROVIDERS: PCP Family Medicine; Visit Provider Nurse Practitioner
DX: R10.9 Unspecified abdominal pain (principal); J84.9 Interstitial pulmonary disease, unspecified
CPT/HCPCS: 74177; Q9967

== ENCOUNTER 2023-06-03 13:50 | Emergency (ER) | payer MEDICARE, OTHER, SELFPAY ==
[2023-06-03 13:59] VITALS: BP 119/69; PULSE 65; RESP 16; TEMP 36.8; O2SAT 100
--- NOTE | 2023-06-03 14:02 | ED.URI ---
HPI - URI/Sore Throat General Chief Complaint: Upper Respiratory Infection Stated Complaint: Cold symptoms Time Seen by Provider: 06/03/23 13:57 Source: patient, RN notes reviewed and old records reviewed Mode of arrival: ambulatory Limitations: no limitations History of Present Illness HPI Narrative: 72-year-old female presents to [facility] with complaints cough and chest congestion that started Sunday. Patient states has a history of chronic bronchitis. Patient states gets steroids for flares. Patient denies fever myalgias, shortness of breath, or sore throat Related Data Home Medications Medication Instructions Recorded Confirmed omeprazole 20 mg capsule,delayed 20 mg PO DAILY 03/17/21 05/21/23 release fluticasone propionate 50 1 spray intranasal DAILY 05/19/21 05/21/23 mcg/actuation nasal spray,suspension (Allergy Relief (fluticasone)) glucosamine-chondroitin 250 mg-200 2 tablet PO TID 08/01/21 05/21/23 mg tablet (Osteo Bi-Flex) [id number]-zol-vvzu 18 mg-FA 400 1 tablet PO DAILY 08/01/21 05/21/23 mcg-calcium 500 mg-vit K 50 mcg tablet (Women's Multivitamin) calcium carbonate 400 mg calcium 400 mg PO BID 12/02/21 05/21/23 (1,000 mg) chewable tablet (Tums Ultra) polyethylene glycol 3350 17 17 g PO DAILY 01/10/23 05/21/23 gram/dose oral powder (Miralax) atorvastatin 20 mg tablet 80 mg PO QHS 05/21/23 05/21/23 Allergies Allergy/AdvReac Type Severity Reaction Status Date / Time azithromycin Allergy Unknown rash Verified 05/21/23 13:44 Review of Systems Review of Systems: All systems reviewed & are unremarkable except as noted in HPI and below Constitutional: Constitutional: Reports no additional constitutional complaints Eyes: Eyes: Reports no additional eye complaints ENT: Reports system reviewed and no additional complaints, except as documented Cardiovascular: Cardiovascular: Reports no additional cardiovascular complaints Respiratory: Respiratory: Reports no additional respiratory complaints, Reports chest congestion and Reports cough Neurologic: Reports system reviewed and no additional complaints, except as documented [facility] Past Medical History Medical History Acute abdominal pain Bloating Bruises easily Colon polyps Constipation Cough COVID-19 (~03/2020) Degenerative joint disease Diverticulitis Diverticulosis Essential hypertension Flatulence Headache History of basal cell cancer Hx of colonic polyps Hyperlipidemia IBS (irritable bowel syndrome) Irritable bowel syndrome with constipation Left knee DJD Melanoma Osteopenia Periumbilical pain Rectal bleeding Stress fracture, right foot, subsequent encounter for fracture with routine healing Surgical History Surgical History History of arthroplasty of right knee (~2011) History of arthroscopy of right knee History of foot surgery (~02/2011) Right calcaneus fracture status post reduction and percutaneous fixation with subsequent hardware removal. History of melanoma excision History of tonsillectomy History of tooth extraction History of total hysterectomy with bilateral salpingo-oophorectomy (BSO) (~1998) History of tubal ligation Family History Family History Mother Hypertension Sibling Patient's brother is in good health Father Family history of malignant neoplasm of brain, Onset Age: 34 Social History Social History Social History: Surrogate decision maker: Brie Morris, daughter. Code status: Full code. Smoking packs per day: 1 Smoking cigarettes per day: 20.0 Years smoked: 25 Smoking pack-years: 25.00 Smoking status: Former smoker Tobacco type: cigarettes Smoking end date: 07/09/95 Alcohol intake: current Drinks per week: 4 Alc
== END 2023-06-03 14:17 | disposition home or self-care (01) ==
PROVIDERS: Emergency Provider Registered Nurse; PCP Family Medicine
DX: J40 Bronchitis, not specified as acute or chronic (principal); Z87.891 Personal history of nicotine dependence; I10 Essential (primary) hypertension; E78.5 Hyperlipidemia, unspecified; M17.12 Unilateral primary osteoarthritis, left knee; M85.80 Other specified disorders of bone density and structure, unspecified site; Z86.16 Personal history of COVID-19; Z85.820 Personal history of malignant melanoma of skin; Z85.828 Personal history of other malignant neoplasm of skin
CPT/HCPCS: 99213; G0463

== ENCOUNTER → 2023-06-12 13:45 | Outpatient (CLI) | payer MEDICARE, OTHER, SELFPAY ==
--- NOTE | ~2023-06-12 | CT_ITS ---
Non-contrast CT scan of the Abdomen Clinical indication: Splenomegaly, hepatic cyst Technique: 2.5 mm axial scans were obtained through the abdomen without intravenous or oral contrast . Dose reduction technique was used on this scan by utilizing automated exposure control and iterativ e reconstruction technique. The dose-length product (DLP) was 440.58 mGy-cm. COMPARISON: 11/20/2022 Findings: Images through the lung bases reveal minimal chronic interstitial changes, similar to prio r exam. Stable small inferior right hepatic lobe cyst noted. Splenomegaly similar to prior exam, spleen measu ring approximately 14.5 cm in length. The kidneys, pancreas, gallbladder, and adrenals appear normal. There are atherosclerotic calcificati ons of the aorta. Visualized bowel loops are unremarkable. No ascites. Impression: Mild splenomegaly, similar to prior exam. Stable subcentimeter hepatic cyst. Minimal interstitial change at the lung bases. Reviewed, dictated and finalized at [facility]. LATORY ASSOCIATE Impression: Mild splenomegaly, similar to prior exam. Stable subcentimeter hepatic cyst. Minimal interstitial change at the lung bases.
== END ==
PROVIDERS: PCP Family Medicine; Visit Provider Family Medicine
DX: R16.1 Splenomegaly, not elsewhere classified (principal); K76.89 Other specified diseases of liver
CPT/HCPCS: 74150

== ENCOUNTER → 2023-07-23 11:06 | Outpatient (CLI) | payer MEDICARE, OTHER, SELFPAY ==
--- NOTE | ~2023-07-23 | XR_ITS ---
XR chest 2V DATE: 07/23/2023 11:22 INDICATION: Cough. History of hypertension, melanoma. Previous smoker. TECHNIQUE: PA and lateral views COMPARISON: 08/13/2015 2 view chest FINDINGS: Borderline heart size. Thoracic and abdominal aortic calcification. No hilar or mediastinal enlargement. No pulmonary infiltrate or consolidation, pleural effusion or pu lmonary vascular effusion or pneumothorax is detected. IMPRESSION: Borderline heart size Aortic calcification No active pulmonary disease Reviewed, dictated and finalized at location B. RIOLOGIST
== END ==
PROVIDERS: PCP Family Medicine; Visit Provider Family Medicine
DX: R05.9 Cough, unspecified (principal); I10 Essential (primary) hypertension; I70.0 Atherosclerosis of aorta
CPT/HCPCS: 71046

== ENCOUNTER 2024-09-22 14:23 | Outpatient (CLI) | payer MEDICARE, SELFPAY ==
--- NOTE | ~2024-09-22 | XR_ITS ---
XR hip LT 2V w AP pelvis Ordering provider: Litzy Pandey EXTRUSION SUPERVISOR-C History: . M25.552 - Pain in left hip . Comparison: None. FINDINGS: BONES: No acute fracture or dislocation. HIP JOINT SPACES: Bilateral severe hip osteoarthritic changes. SACROILIAC JOINT SPACES/LUMBAR SPINE: The sacroiliac joint spaces are normal. Mild degenerative michael es of the visualized lower lumbar spine. PUBIC SYMPHYSIS: Pubic symphysitis. SOFT TISSUES: Normal. IMPRESSION: No acute osseous abnormality pelvis and left hip. Bilateral severe hip osteoarthritic changes. Reviewed, dictated and finalized at location A.
== END 2024-09-22 14:24 | disposition home or self-care (01) ==
LOC: GOSHIMG 14:23
PROVIDERS: PCP Nurse Practitioner; Visit Provider Nurse Practitioner
DX: M16.0 Bilateral primary osteoarthritis of hip (principal)
CPT/HCPCS: 73502

== ENCOUNTER 2024-12-22 09:08 | Outpatient (CLI) | payer MEDICARE, SELFPAY ==
--- NOTE | ~2024-12-22 | NM_ITS ---
EXAMINATION: NM salud stress w perfusion DATE: 12/22/2024 11:10 INDICATION: Preoperative examination TECHNIQUE: Rest images were obtained following intravenous administration of 10.0 mCi Tc99m tetrofosm in (Myoview). The patient was infused intravenously with Lexiscan (Regadenoson). Then, 31.4 mCi Tc99m tetrofosmin (Myoview) was administered intravenously, and stress images were obtained. Data was tayla nstructed into short axis and horizontal and vertical long axis SPECT images. Gated SPECT images were also obtained. COMPARISON: None. FINDINGS: There is no definite reversible or fixed perfusion abnormality to suggest ischemia or infar ction. There is normal left ventricular chamber size, wall motion and ejection fraction. Left ventr icular ejection fraction measures >70%. IMPRESSION: 1. Normal myocardial perfusion at rest and during stress. 2. Left ventricular ejection fraction measuring >70%. Reviewed, dictated and finalized at location A.
--- OUTSIDE RECORDS SUMMARY | 2024-12-22 09:34 | XMS_ITS | Patient Health Record ---
Author Organization [facility] Address [address] [place] [address] Support Name Relationship Address Phone Emeli Talley Guarantor Unknown [phone] Reason For Referral No Information Problems Problem Type SNOMED Code ICD Code Onset Dates Problem Status W/U Status Risk Notes Problem History of malignant melanoma of the skin (186645294618) Personal history of malignant melanoma of skin (Z85.820) Active confirmed Problem Personal history of other malignant neoplasm of skin (Z85.828) Active confirmed Plan Of Treatment No Information Insurance Providers Payer Name Payer Address Payer Phone Subscriber Number Group Number Insured Name Patient Relationship to Insured Coverage Start Date Coverage End Date [employer] [place] [address] [place] [address] [id number] Emeli Talley Self - patient is the insured [employer] [place] [id number] Emeli Talley Self - patient is the insured 5
--- OUTSIDE RECORDS SUMMARY | 2024-12-22 09:34 | XMS_ITS | Clinical Summary ---
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 Name Role Phone Unavailable Primary Care Provider Unavailabl e Encounters Date Type Department Care Team Description 11/27/2024 External Device Data [facility] ABSTRACTION Provider, Abstract 11/26/2024 External Device Data [facility] ABSTRACTION Provider, Abstract 11/25/2024 External Device Data [facility] ABSTRACTION Provider, Abstract 09/24/2024 External Device Data [facility] ABSTRACTION Provider, Abstract from Last 3 Months Social History Tobacco Use Types Packs/Day Years Used Date Smoking Tobacco: Never Assessed Comments Unknown Sex and Gender Information Value Date Recorded Sex Assigned at Not on file 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 Gender Identity Not on file Sexual Orientation Not on file Plan of Treatment Health Maintenance Due Date Last Done Comments COLORECTAL SCREENING 1994 Colorectal Cancer Screening 1994 FIT-DNA Q 3 years 1994 FIT/FOBT Q 1 year 1994 Flex Sig/CT Colonography Q 5 years 1994 OSTEOPOROSIS SCREENING 2014 INFLUENZA VACCINE (#1) 2024 , 03/29/2019, 03/20/2018, Additional history exists RSV VACCINE (60+ or ) (1 - 1-dose 75+ series) 2024 DTAP/TDAP/TD VACCINES (2 - T d or Tdap) 10/18/2028 10/18/2018, 10/01/2013 PNEUMOCOCCAL VACCINE 50+ YEARS Completed 0 03/21/2017, 04/14/2016, 08/06/2011, Additional history exists ZOSTER VACCINE Completed 04/24/2018, 01/28/2018 Insurance MEDICARE PART A AND B [place] [address]
--- NOTE | 2024-12-22 09:50 | EST_ITS ---
Patient Info Name: Emeli Talley Age: 74 years : 1950 Gender: Female Ht: 60 in Wt: 150 lbs BSA: 1.72 m2 HR: 60 bpm BP: 195 / 76 mmHg Exam Date: 12/22/2024 9:50 AM Patient Status: O Admit Date: 12/22/2024 Exam Type: CA stress salud w NM A regadenoson stress test was performed. Staff Referring Physician: Donn Foss DO Attending Provider: Donn Foss DO Exercise Technologist: Marge Amaya Exercise Physician: Donn Foss DO Summary 1. 1. Negative lexiscan stress test for ischemic ST changes by ECG criteria. 2. 2. Baseline hypertension. 3. 3. Nuclear scan to follow and will be reported separately. Please correlate with it. Protocol: Lexiscan Stress ECG Details Stage: REST Duration (min): 1 min : 55 sec HR (bpm): 61 SBP (mmHg): 195 DBP (mmHg): 76 Stage: REST Duration (min): 3 min : 32 sec HR (bpm): 61 SBP (mmHg): 195 DBP (mmHg): 76 Stage: STAGE 1 Duration (min): 1 min : 0 sec HR (bpm): 89 SBP (mmHg): 195 DBP (mmHg): 76 Stage: RECOVERY Duration (min): 1 min : 0 sec HR (bpm): 89 SBP (mmHg): 193 DBP (mmHg): 70 Stage: RECOVERY Duration (min): 2 min : 0 sec HR (bpm): 81 SBP (mmHg): 193 DBP (mmHg): 70 Stage: RECOVERY Duration (min): 3 min : 0 sec HR (bpm): 79 SBP (mmHg): 193 DBP (mmHg): 70 Stage: RECOVERY Duration (min): 3 min : 33 sec HR (bpm): 79 SBP (mmHg): 162 DBP (mmHg): 67 Rest HR: 61 bpm Peak HR: 91 bpm Rest Sys BP: 195 mmHg Peak Sys BP: 193 mmHg Max Pred HR: 145 bpm % Max Pred HR: 63 % Target HR: 123 bpm Max RPP: 17,563 bpm*mmHg Termination Reason: Completed protocol Cardiac Symptoms: Shortness of breath, Headache Total Time: 1 min : 0 sec Rest Kothari BP: 76 mmHg Peak Kothari BP: 70 mmHg Total Dose: 0.4 mg Resting ECG Sinus rhythm. Stress ECG No ST changes. Arrhythmias None. Report Signatures
== END 2024-12-22 09:09 | disposition home or self-care (01) ==
PROVIDERS: PCP Family Medicine; Visit Provider Internal Medicine Cardiovascular Disease
DX: Z01.810 Encounter for preprocedural cardiovascular examination (principal); I10 Essential (primary) hypertension
CPT/HCPCS: 78452; 93017; A9502; J2785

== ENCOUNTER 2025-06-09 08:18 | Outpatient (CLI) | payer MEDICARE, SELFPAY ==
--- OUTSIDE RECORDS SUMMARY | 2025-06-09 08:23 | XMS_ITS | Clinical Summary ---
Author Organization [facility] Address Formerly [facility] [place] [address] Care Team Providers Care Movement Education Specialist Name Role Phone Tori Dyer Primary Care Provider [phone] Allergies Active Allergy Reactions Criticality Noted Date Comments Azithromycin Itching Medium Medications ibuprofen (ADVIL,MOTRIN) 200 mg tab/capIndicati ons:Pain Take 2 tablet/capsule (400 mg total) by mouth every 8 (eight) hours as needed for pain Active acetaminophen (TYLENOL) 325 mg tablet Take 2 tablets (650 mg total) by mouth every 6 (six) hours as needed for pain Active omeprazole (PriLOSEC) 20 mg capsule Take 1 capsule (20 mg total) by mouth daily Active losartan (COZAAR) 25 mg tablet Take 1 tablet (25 mg total) by mouth daily Active fluticasone propionate (FLONASE) 50 mcg/actuation nasal spray Administer 1 spray into affected nostril(s) daily 1 Active aspirin 81 mg enteric coated tablet Take 1 tablet (81 mg total) by mouth daily 90 tablet 3 3 Active multivitamin with iron tablet Take 1 tablet by mouth daily Active glucosamine-D3- [place] serr 1,500-400-100 mg-unit-mg tablet Take by mouth Active calcium carbonate (TUMS) 500 mg (200 mg elemental calcium) chewable tablet Take 2 tablet/chew tab (1,000 mg total) by mouth daily Active cetirizine (ZyrTEC) 10 mg chewable tablet Take 1 tablet (10 mg total) by mouth daily Active vitamin D3-vitamin K2 25 mcg (1,000 unit)-90 mcg tablet,disinteg rating Take 50 mcg by mouth daily Active polyethylene glycol (MIRALAX) 17 gram/dose bulk powder Take 17 g by mouth daily Active atorvastatin (LIPITOR) 80 mg tablet Take 1 tablet by mouth nightly 90 tablet 1 4 Active Active Problems Problem Noted Date Diagnosed Date Mild aortic stenosis 09/14/2023 Coronary artery calcification seen on CAT scan 0 02/23/2023 Hyperlipidemia 02/23/2023 Hypertension 02/23/2023 Basal cell carcinoma of skin of nose 04/23/2019 Overview (04/23/2019): Added automatically from request for surgery [id number] Essential tremor 12/30/2015 Anxiety 12/30/2015 Chronic tension headache 12/30/2015 Surgical History Surgery Date Site/Laterality Comments [place] TOTAL ABDOMINAL HYSTERECT W/WO RMVL TUBE OVARY Hysterectomy - (Added by TW Conv) [place] ARTHRP KNE CONDYLE&PLATU MEDIAL&LAT COMPARTMENTS Total Knee Arthroplasty - (Added by TW Conv) HYSTERECTOMY REPLACEMENT TOTAL KNEE Right KNEE ARTHROSCOPY multiple Medical History Medical History Date Comments Personal history of malignan t melanoma of skin History of malignant melanom a - (Added by TW Conv) History of chronic bronchitis Family History Medical History Relation Name Comments Migraines Daughter Family history of migraine headaches - (Added by TW Conv) Brain cancer Father Family history of malignant neoplasm of brain - (Added by TW Conv) Heart disease Maternal Grandfather Family history of cardiac disorder - (Added by TW Conv) Diabetes Maternal Grandmother Family history of diabetes mellitus - (Added by TW Conv) Arrhythmia Mother Tachycardia - ( Added by TW Conv) Relation Name Status Comments Daughter Father Maternal Grandfather Maternal Grandmother Mother Social History Tobacco Use Types Packs/Day Years Used Date Smoking Tobacco: Former Cigarettes 0.1 30 1 966 - 1995 Smokeless Tobacco: Never Tobacco Cessation:Counseling Given: Not Answered Alcohol Use Standard Drinks/Week Comments Yes 8 (1 standard drink = 0.6 oz pur e alcohol) Comments No Sex and Gender Information Value Date Recorded Sex Assigned at Not on file Legal Sex Female 10:58 AM QUALITY MANAGEMENT NURSE Gender Identity Not on file Sexual Orientation Not on file Last Filed Vital Signs Vital Sign Reading Time Taken Comments Blood Pressure 112/64 09/14/2023 3:40 PM QUALITY MANAGEMENT NURSE Pulse 67 09/14/2023 3:40 PM QUALITY MANAGEMENT NURSE Temperature 36 C (96.8 F) 05/06/2019 3:48 PM CDT Respiratory Rate 14 05/06/2019 4:35 PM CDT Oxygen Saturation 99% 09/14/2023 3:40 PM QUALITY MANAGEMENT NURSE Inhaled Oxygen Concentration - - Weight 71.7 kg (158 lb) 09/14/2023 3:40 PM QUALITY MANAGEMENT NURSE Height 154.9 cm (5' 1) 09/14/2023 3:40 PM QUALITY MANAGEMENT NURSE Body Mass Index 29.85 09/14/2023 3:40 PM QUALITY MANAGEMENT NURSE Plan of Treatment Health Maintenance Due Date Last Done Comments Colon Cancer Screening-Colonoscopy 1950 Depression Screening 1950 Fall Risk Assessment 1950 Hepatitis C Screening 1950 Osteoporosis Screening-Bone Density Scan 1950 Well Visit 65+ 2014 Influenza Vaccine (#1) 2025 9, 09/20/2018, 03/20/2018, Additional history exists DTaP/Tdap/Td Vaccine (2 - Td or Tdap) 10/18/2028 10/18/2018, 10/01/2013, 10/01/2013 Zoster Vaccine Completed 04/24/2018, 01/28/2018 Pneumococcal vaccine 65+ Completed 019, 09/20/2018, 03/14/2018, Additional history exists Hepatitis B Screening Completed 08/21/2019 Breast Cancer Screening-Mammogram Discontinued 023, 03/16/2023 Insurance MEDICARE COMMERCIAL GENERIC MEDICARE [facility] MEDICARE [facility] Advance Directives For more information, please contact: [phone] Documents on File Type Date Recorded Patient Security Officers And Guards Expl anation ADVANCE DIRECTIVE 05/06/2019 12:34 PM ADVANCE DIRECTIVE 05/06/2019 12:34 PM Care Teams Movement Education Specialist Relationship Specialty Start Date End Date Tori Dyer DO PCP - General Family Medicine 02/23/23
--- OUTSIDE RECORDS SUMMARY | 2025-06-09 08:23 | XMS_ITS | Encounter Summary ---
Author Organization [facility] Address [address] [place] [address] Care Team Providers Care Nonfarm Animal Caretaker Name Role Phone Mao Keller MD Unavailable Ishan Bradley DO Unavailable Mao Keller MD Unavailable [phone] Tori Dyer DO Primary Care Provider [phone] Encounter Details Date Type Department Care Team (Late st Contact Info) Description 01/29/2025 Lab Requisition [facility] - DermPath Lab [address] [facility], [facility] [place] [id number] Litzy Colunga DO [address] [facility] [address] [place] [address] Social History Tobacco Use Types Packs/Day Years Used Date Smoking Tobacco: Former Cigarettes 1 25 0 07/09/1968 - 07/09/1993 Alcohol Use Standard Drinks/Week Comments Yes 12.5 (1 standard drink = 0.6 oz pure alcohol) Comments Unknown Sex and Gender Information Value Date Recorded Sex Assigned at Not on file Legal Sex Female 12:57 PM WET PROCESS MILLER Gender Identity Not on file Sexual Orientation Not on file documented as of this encounter Plan of Treatment Not on file documented as of this encounter Procedures Procedure Name Priority Date/Time Associated Diagnosis Comments DERMATOPATHOLOGY Routine 01/29/2025 10:2 3 AM CDT documented in this encounter Results * DERMATOPATHOLOGY (01/29/2025 10:23 AM CDT) Case Report Dermatopathology Report Case: [id number] Authorizing Provider: Litzy Colunga DO Collected: 01/29/2025 10:23 AM Ordering Location: [facility] - Received: 01/30/2025 07:00 AM DermPath Lab Pathologist: Delicia Luna MD Specimens: A) - Skin, crown of scalp B) - Skin, left upper back C) - Skin, right upper back 1:54 PM CDT DERMATOPATHOLOGY LABORATORY Final Diagnosis Specimen A. SKIN, crown of scalp: HYPERPLASTIC (HYPERTROPHIC) ACTINIC KERATOSIS (L57.0) DERMAL FIBROSIS (L90.5) Specimen B. 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 The specimen consists of a shave biopsy measuring 7x5x1 mm. Jar 0. Specimen B: Received is one formalin filled container labeled with the patient's name and designated left upper back. The specimen consists of a shave biopsy measuring 7x6x1 mm. Jar 0. Specimen C: Received is one formalin filled container labeled with the patient's name and designated right upper back. The specimen consists of a shave biopsy measuring 7x6x1 mm. Jar 0. 1:54 PM CDT DERMATOPATHOLOGY LABORATORY Microscopic Description Specimen A. SKIN, crown of scalp: There is hyperkeratosis alternating with parakeratosis. There is epidermal hyperplasia with disorderly maturation of keratinocytes with nuclear pleomorphism confined to the lower half of the epidermis. There is focal dermal fibrosis. Specimen B. SKIN, left upper back: The epidermis shows parakeratosis, full thickness disorderly maturation of keratinocytes, mitoses at different levels, and dyskeratotic cells. Attached to the undersurface of the epidermis, there are small aggregates of basaloid cells with a high nuclear to cytoplasmic ratio and peripheral palisading. Specimen C. SKIN, right upper back: The epidermis shows parakeratosis, full thickness disorderly maturation of keratinocytes, mitoses at different levels, and dyskeratotic cells. 5 1:54 PM CDT DERMATOPATHOLOGY LABORATORY Disclaimer An external and internal positive and negative controls are appropriate for the histochemical, immunohistochemical and immunofluorescence stain(s) in this case (if any), except where stated explicitly. The performance characteristics of the stain(s) cited in this report were developed and its performance characteristic determined by the Dermatopathology Laboratory at [facility], directed by Dr. Jazmyne Hartman. These tests need not be, and therefore are not, approved by the [place] Food and Drug Administration. The tests are used for clinical purposes. Billing Codes Specimen Charges Stain Charges 40432 78986 78598 1 1 1 5 1:54 PM CDT DERMATOPATHOLOGY LABORATORY Embedded Images 1:54 PM CDT DERMATOPATHOLOGY LABORATORY Pathology/Cytology TISSUE SPECIMEN FROM SKIN / Unknown 01/29/2025 10:23 AM CDT 01/30/2025 7:00 AM CDT Miscellaneous samples (specimen) TISSUE SPECIMEN FROM SKIN / Unknown 01/29/2025 10:23 AM CDT 01/30/2025 7:00 AM CDT Miscellaneous samples (specimen) TISSUE SPECIMEN FROM SKIN / Unknown 01/29/2025 10:23 AM CDT 01/30/2025 7:00 AM CDT us Litzy Colunga DO LAB - PATHOLOGY/CYTOLOGY ORDERABLES Final Result DERMATOPATHOLOGY LABORATORY [facility] - Department of Dermatology [facility] [address] [place] [address], [address] [place] [address], [facility] [phone] documented in this encounter Visit Diagnoses Not on filedocumented in this encounter Care Teams Nonfarm Animal Caretaker Relationship Specialty Start Date End Date Tori Dyer DO [address] [place] [address] PCP - General 06/14/22 Mao Keller MD Orthopedic Surgery 08/24/11 Ishan Bradley DO Orthopedic Surgery 10/07/13 [place] [address] [address] Orthopedic Surgery 10/26/15 documented as of this encounter
--- OUTSIDE RECORDS SUMMARY | 2025-06-09 08:23 | XMS_ITS | Clinical Summary ---
Author Organization [facility] Address [address] [facility] [place] [address] Care Team Providers Care Motor Overhauler Name Role Phone Mao Keller MD Unavailable [phone] Ishan Bradley DO Unavailable Mao Keller MD Unavailable [phone] Tori Dyer DO Primary Care Provider [phone] Source Comments [facility],non-owned Affiliates and Associated Physician Practices is amultiple site organization consisting of ambulatory clinics and hospital sitesin [place], [place], [place] and [place]. This disclosure is being madepursuant to the Care Everywhere program and may not contain all information available regarding this patient. Last updated 18.[facility] Allergies Active Allergy Reactions Criticality Noted Date Comments Azithromycin 07/11/2011 Itching Medications * Be aware that medications may not be up to date on this document. Alwaysverify current medications with the patient. fish oil/omega-3 fatty acids (FISH OIL) 1000 MG capsule Take 1,000 mg by mouth 3 times daily with meals. Active ibuprofen (ADVIL) 200 MG tablet Take 2 Tabs by mouth every 6 hours as needed. Active ALPRAZolam (XANAX) 0.5 MG tabletIndication s:Arthritis of left knee Take 1 Tab by mouth as needed 02/29/2016 Active nortriptyline (PAMELOR) 10 MG capsuleIndicatio ns:Arthritis of left knee Take 20 mg by mouth once daily 04/18/2016 Active spironolactone (ALDACTONE) 50 MG tabletIndication s:Arthritis of left knee Take 50 mg by mouth once daily 03/31/2016 Active Biotin 5000 MCGIndications:A rthritis of left knee Take 1 Tab by mouth once daily Active Melatonin 3 MGIndications:Ar thritis of left knee Take 1 Cap by mouth once daily Active nabumetone (RELAFEN) 750 MG tabletIndication s:Arthritis of left knee Take 1 Tab by mouth 2 times daily 60 Tab 5 05/04/2016 Active Active Problems Problem Noted Date Diagnosed Date Arthritis of left knee 05/04/2016 Right shoulder pain 10/07/2013 Knee joint replacement by other means 08/24/2011 Encounters Date Type Department Care Team Description 04/13/2025 Lab Requisition [facility] - DermPath Lab [address] [place] [phone] Litzy Colunga DO 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, including shoulder 04/06/2025 Lab Requisition [facility] - DermPath Lab [address] [place] [phone] Litzy Colunga DO 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 from Last 3 Months Immunizations Immunization Administration Dates Next Due PNEUMOCOCCAL PPSV23 08/06/2011 Social History Tobacco Use Types Packs/Day Years Used Date Smoking Tobacco: Former Cigarettes 1 25 0 07/09/1968 - 07/09/1993 Alcohol Use Standard Drinks/Week Comments Yes 12.5 (1 standard drink = 0.6 oz pure alcohol) Comments Unknown Sex and Gender Information Value Date Recorded Sex Assigned at Not on file Legal Sex Female 12:57 PM HOSPITALITY AMBASSADOR Gender Identity Not on file Sexual Orientation Not on file Last Filed Vital Signs Vital Sign Reading Time Taken Comments Blood Pressure 117/69 08/06/2011 4:50 AM HOSPITALITY AMBASSADOR Pulse 83 08/06/2011 4:50 AM HOSPITALITY AMBASSADOR Temperature 36.9 C (98.4 F) 08/06/2011 4:50 AM HOSPITALITY AMBASSADOR Respiratory Rate 18 08/06/2011 4:50 AM HOSPITALITY AMBASSADOR Oxygen Saturation 93% 08/06/2011 4:50 AM HOSPITALITY AMBASSADOR Inhaled Oxygen Concentration - - Weight 70.3 kg (155 lb) 10/26/2015 12:09 PM CDT Height 154.9 cm (5' 1) 10/26/2015 12:09 PM CDT Body Mass Index 29.29 10/26/2015 12:09 PM CDT Plan of Treatment Health Maintenance Due Date Last Done Comments BONE DENSITY TESTING 1950 COLOGUARD (AGES 45-75) - COL ON CA SCREENING 1949 COLON MONITORING 1949 COLONOSCOPY - COLON CA SCREENING 1949 CT COLONOGRAPHY - COLON CA SCREENING 1950 Colorectal Cancer Screening 1950 FIT - COLON CA SCREENING 1949 FLEX SIG - COLON CA SCREENING 1949 LIPID TESTING 1950 MAMMOGRAM 1950 HEPATITIS C SCREENING 07/22/1967 DTAP/TDAP/TD VACCINES (1 - Tdap) 1968 ZOSTER VACCINE (1 of 2) 1999 PNEUMOCOCCAL VACCINE 50+ (2 of 2 - PCV) 08/06/2012 08/06/2011 DEPRESSION SCREENING 07/09/2024 MEDICARE AWV CALENDAR YEAR 2024 Respiratory Syncytial Virus (RSV) Vaccine Pt: or over 60 yrs (1 - 1-dose 75+ series) 2024 COVID-19 VACCINE ( - 2024-2 6 season) 2025 INFLUENZA VACCINE (#1) 2025 03/09/2014 HEPATITIS B VACCINE Aged Out No longe r eligible based on patient's age to complete this topic HIB VACCINE Aged Out No longer eligi ble based on patient's age to complete this topic HPV VACCINE Aged Out No longer eligi ble based on patient's age to complete this topic MENINGOCOCCAL (Group B) VACC INE SHARED DECISION-MAKING Aged Out No longer eligibl e based on patient's age to complete this topic MENINGOCOCCAL GROUPS A/C/Y/W VACCINE Aged Out No longer eligible b ased on patient's age to complete this topic Procedures Procedure Name Priority Date/Time Associated Diagnosis Comments DERMATOPATHOLOGY Routine 04/13/2025 7:00 AM CDT 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 Case Report Dermatopathology Report Case: [id number] Authorizing Provider: Litzy Colunga DO Collected: 04/13/2025 07:00 AM Ordering Location: [facility] - Received: 04/13/2025 01:07 PM DermPath Lab Pathologist: Elicia Carnes MD Specimen: Skin, right upper back 5:02 PM CDT DERMATOPATHOLOGY LABORATORY Final Diagnosis Specimen A. 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 Check Margins 5:02 PM CDT DERMATOPATHOLOGY LABORATORY Gross Description Specimen A: Received is one formalin filled container labeled with the patient's name and designated right upper back. The specimen consists of a non-oriented ellipse of skin measuring 40b02d0 mm. The epidermal surface is unremarkable. The margin is inked green. The 12 o'clock and 6 o'clock tips are submitted in cassette 1. The remainder of the ellipse is serially sectioned and submitted in cassette 2-3. Jar 0. 5:02 PM CDT DERMATOPATHOLOGY LABORATORY Microscopic Description Specimen A. SKIN, right upper back: The epidermis shows parakeratosis, full thickness disorderly maturation of keratinocytes, mitoses at different levels, and dyskeratotic cells. This lesion is not present at the margin of the specimen. There are fibroblasts and collagen bundles oriented parallel to the skin surface with elongated blood vessels, some of which are oriented perpendicular to the skin surface. There is focal parakeratosis. The lower half of the epidermis shows disorderly maturation of keratinocytes with nuclear pleomorphism. The actinic keratosis is present at the lateral margin of the specimen. 10/08/202 5 5:02 PM CDT DERMATOPATHOLOGY LABORATORY Disclaimer An external and internal positive and negative controls are appropriate for the histochemical, immunohistochemical and immunofluorescence stain(s) in this case (if any), except where stated explicitly. The performance characteristics of the stain(s) cited in this report were developed and its performance characteristic determined by the Dermatopathology Laboratory at [facility], directed by Dr. Jazmyne Hartman. These tests need not be, and therefore are not, approved by the [place] Food and Drug Administration. The tests are used for clinical purposes. Billing Codes Specimen Charges Stain Charges 93149 1 5 5:02 PM CDT DERMATOPATHOLOGY LABORATORY Embedded Images 5 5:02 PM CDT DERMATOPATHOLOGY LABORATORY Pathology/Cytolo gy TISSUE SPECIMEN FROM SKIN / Unknown 04/13/2025 7:00 AM CDT 04/13/2025 1:07 PM CDT Litzy Colunga DO LAB - PATHOLOGY/CYTOLOGY ORDERABLES Final Result DERMATOPATHOLOGY LABORATORY [facility] - Department of Dermatology [facility] Medicine [address] [place] [address], [address] [phone] from Last 3 Months Insurance [facility] [employer] MEDICARE ADV Advance Directives Documents on File Type Date Recorded Patient Technical Adjuster Expl anation Adv Directive/Living Will/POA 08/07/2011 10:34 AM * FULL RESUSCITATION (Latest Code Status on File) Date Activated Date Inactivated Comments 08/03/2011 1:26 PM 08/06/2011 11:26 PM Care Teams Motor Overhauler Relationship Specialty Start Date End Date Tori Dyer DO [address] [place] [address] PCP - General 06/14/22 Mao Keller MD Orthopedic Surgery 08/24/11 Ishan Bradley DO Orthopedic Surgery 10/07/13 [place] [address] [address] [address] Orthopedic Surgery 10/26/15
--- OUTSIDE RECORDS SUMMARY | 2025-06-09 08:23 | XMS_ITS | Encounter Summary ---
Author Organization [facility] Address [address] [place] [address] Care Team Providers Care Senior Scrum Master Name Role Phone Mao Keller MD Unavailable [phone] Ishan Bradley DO Unavailable Mao Keller MD Unavailable [phone] Tori Dyer DO Primary Care Provider [phone] Encounter Details Date Type Department Care Team (Late st Contact Info) Description 03/01/2023 Lab Requisition [facility] - DermPath Lab [address] [facility], [facility] [place] [phone] Litzy Colunga DO [address] [facility] 3 [place] [address] Social History Tobacco Use Types Packs/Day Years Used Date Smoking Tobacco: Former Cigarettes 1 25 0 07/09/1968 - 07/09/1993 Alcohol Use Standard Drinks/Week Comments Yes 12.5 (1 standard drink = 0.6 oz pure alcohol) Comments Unknown Sex and Gender Information Value Date Recorded Sex Assigned at Not on file Legal Sex Female 12:57 PM RESEARCH WORKER KITCHEN Gender Identity Not on file Sexual Orientation Not on file documented as of this encounter Plan of Treatment Not on file documented as of this encounter Procedures Procedure Name Priority Date/Time Associated Diagnosis Comments DERMATOPATHOLOGY Routine 03/01/2023 2:10 PM CDT documented in this encounter Results * DERMATOPATHOLOGY (03/01/2023 2:10 PM CDT) Case Report Dermatopathology Report Case: [id number] Authorizing Provider: Litzy Colunga DO Collected: 03/01/2023 02:10 PM Ordering Location: [facility] DermPath Lab Received: 03/05/2023 10:57 AM Pathologist: Tracy Hartman MD Specimens: A) - Skin, right chest B) - Skin, left upper arm 3 2:44 PM CDT DERMATOPATHOLOGY LABORATORY Final Diagnosis Specimen A. SKIN, right chest: BASAL CELL CARCINOMA, SUPERFICIAL MULTIFOCAL (C44.519) Specimen B. SKIN, left upper arm: HYPERPLASTIC (HYPERTROPHIC) ACTINIC KERATOSIS WITH OVERLYING CHANGES OF PRURIGO NODULARIS (L57.0) 2:44 PM CDT DERMATOPATHOLOGY LABORATORY at 1444 CDT Clinical History A: R/O BCC B: NMSC 2:44 PM CDT DERMATOPATHOLOGY LABORATORY Gross Description Specimen A: Received is one formalin filled container labeled with the patient's name and designated right chest. The specimen consists of a shave biopsy measuring 6x6x1 mm. Jar 0. Specimen B: Received is one formalin filled container labeled with the patient's name and designated left upper arm. The specimen consists of a shave biopsy measuring 8x8x3 mm. Jar 0. 2:44 PM CDT DERMATOPATHOLOGY LABORATORY Microscopic Description Specimen A. SKIN, right chest: Attached to the undersurface of the epidermis, there are small aggregates of basaloid cells with a high nuclear to cytoplasmic ratio and peripheral palisading. Specimen B. SKIN, left upper arm: There is hyperkeratosis alternating with parakeratosis. There is epidermal hyperplasia with disorderly maturation of keratinocytes with nuclear pleomorphism confined to the lower half of the epidermis. There is a dome-shaped portion of skin with psoriasiform epidermal hyperplasia, compact hyperkeratosis, and fibrosis of the papillary dermis associated with a superficial perivascular lymphohistiocytic infiltrate. 2:44 PM CDT DERMATOPATHOLOGY LABORATORY Disclaimer An external and internal positive and negative controls are appropriate for the histochemical, immunohistochemical and immunofluorescence stain(s) in this case (if any), except where stated explicitly. The performance characteristics of the stain(s) cited in this report were developed and its performance characteristic determined by the Dermatopathology Laboratory at [facility], directed by Dr. Jazmyne Hartman. These tests need not be, and therefore are not, approved by the [place] Food and Drug Administration. The tests are used for clinical purposes. Billing Codes Specimen Charges Stain Charges 43849 97909 1 1 3 2:44 PM CDT DERMATOPATHOLOGY LABORATORY Embedded Images 3 2:44 PM CDT DERMATOPATHOLOGY LABORATORY Pathology/Cytology TISSUE SPECIMEN FROM SKIN / Unknown 03/01/2023 2:10 PM CDT 03/05/2023 10:57 AM CDT Miscellaneous samples (specimen) TISSUE SPECIMEN FROM SKIN / Unknown 03/01/2023 2:10 PM CDT 03/05/2023 10:57 AM CDT Litzy Colunga DO LAB - PATHOLOGY/CYTOLOGY ORDERABLES Final Result DERMATOPATHOLOGY LABORATORY [facility] - Department of Dermatology [facility] [address] [place] [address], [address] [phone] documented in this encounter Visit Diagnoses Not on filedocumented in this encounter Care Teams Senior Scrum Master Relationship Specialty Start Date End Date Tori Dyer DO [address] [place] [address] PCP - General 06/14/22 Mao Keller MD Orthopedic Surgery 08/24/11 Ishan Bradley DO Orthopedic Surgery 10/07/13 [place] [id number] [address] Orthopedic Surgery 10/26/15 documented as of this encounter
--- OUTSIDE RECORDS SUMMARY | 2025-06-09 08:23 | XMS_ITS | Clinical Summary ---
Author Organization [facility] Address [address] [place] [address] Care Team Providers Care Otc Clerk Name Role Phone Tori Dyer Primary Care Provider [phone] Allergies Active Allergy Reactions Criticality Noted Date Comments Azithromycin Rash Low 03/17/2020 Medications acetaminophen 325 MG tablet Take 650 mg by mouth. Active albuterol sulfate HFA 108 (90 Base) MCG/ACT inhaler INHALE 2 PUFFS BY INHALATION Q 4 H PRN 0 Active atorvastatin 10 MG tablet Take 10 mg by mouth daily. 1 Active ibuprofen 200 MG tablet Take 400 mg by mouth. Active lisinopril 10 MG tablet Take 10 mg by mouth daily. 1 Active fluticasone propionate (FLONASE) 50 MCG/ACT nasal sprayIndication s:Environmental and seasonal allergies 1 spray by Nasal route daily. 16 g 11 1 Active losartan 50 MG tablet Take 50 mg by mouth daily. 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 Overview (01/04/2021): Mildly decreased 10/2020 at 41 (50-300) AMANDA (obstructive sleep apnea) 01/04/2021 Chronic bronchitis, unspecified chronic bronchit is type 11/04/2020 Abnormal finding on lung imaging 11/04/2020 History of COVID-19 11/04/2020 Environmental and seasonal allergies 11/04/2020 Cigarette nicotine dependence in remission 11/04 Immunizations Immunization Administration Dates Next Due Fluzone High Dose - >Age 65 (Prefilled Syringe) 05/04/2020,03/29/2019,03/20/2018,2016,04/14/2016,04/15/2015 Hepatitis B (Generic: Adult) 08/21/2019 Influenza (Generic) 03/09/2014 Influenza Adult (Generic) 03/09/2014 PFIZER COVID-19 (ORIGINAL FORMULATION, PURPLE CAP) mRNA, LNP-S, PF, 30 MCG/0.3 ML DOSE 04/17/2021,09/23/2020,09/02/2020 Pneumococcal (Pneumovax 23) 03/21/2017, 2,07/09/2011 Pneumococcal (Prevnar 13) 04/14/2016 Shingrix 04/24/2018,01/28/2018 Td 10/01/2013 Td (Tenivac) preservative free 10/01/2013 Tdap (Generic) 10/18/2018 Family History Medical History Relation Comments Cancer Father Hyperlipidemia Mother Relation Status Comments Father Mother Social History Tobacco Use Types Packs/Day Years Used Date Smoking Tobacco: Former Cigarettes 1 25 1 971 - 1996 Smokeless Tobacco: Never Tobacco Cessation:Counseling Given: Yes Alcohol Use Standard Drinks/Week Comments Yes 0 (1 standard drink = 0.6 oz pur e alcohol) AUDIT-C Answer Date Recorded Q1: How often do you have a drink containing alc ohol? Never 03/17/2020 Average Number of Drinks Not on file 020 Frequency of Binge Drinking Not on file 03/2020 PHQ-2 Answer Date Recorded PHQ-2 Score - If the patient scores above 3, please move on to questions 3-9 0 05/09/2021 Comments No Sex and Gender Information Value Date Recorded Sex Assigned at Not on file Legal Sex Female 10:54 AM CDT Gender Identity Not on file Sexual Orientation Not on file Last Filed Vital Signs Vital Sign Reading Time Taken Comments Blood Pressure 132/80 05/09/2021 8:35 AM CDT Pulse 71 05/09/2021 8:35 AM CDT Temperature 36.6 C (97.9 F) 05/09/2021 8:35 AM CDT Respiratory Rate 18 05/09/2021 8:35 AM CDT Oxygen Saturation 98% 05/09/2021 8:35 AM CDT ra Inhaled Oxygen Concentration - - Weight 77.1 kg (170 lb) 05/09/2021 8:35 AM CDT Height 154.9 cm (5' 1) 05/09/2021 8:35 AM CDT Body Mass Index 32.12 05/09/2021 8:35 AM CDT Plan of Treatment Health Maintenance Due Date Last Done Comments Colorectal Cancer Screening Colonoscopy (10 Years) 1949 Hepatitis C 1968 Annual Medicare Wellness Visit 2014 Dexa Scan (General) 2014 RSV Immunization or 60+ Years (1 - 1-dose 75+ series) 2024 COVID-19 Vaccine (2024- season) 2025 04/17/2021, 09/23/2020, 09/02/2020 Influenza Adult (#1) 2025 05/04/2020, 03/29/2019, 03/20/2018, Additional history exists DTaP, Tdap and Td Vaccines (2 - Td or Tdap) 10/18/2028 10/18/2018, 10/01/2013, 10/01/2013 Pneumococcal Vaccine: 50+ Years Completed 03/21/2017, 04/14/2016, 08/06/2011, Additional history exists Zoster Vaccines Completed 04/24/2018, 01/28/2018 Hepatitis A Vaccines Aged Out No long er eligible based on patient's age to complete this topic Meningococcal B Vaccine Aged Out No l onger eligible based on patient's age to complete this topic Meningococcal Vaccine Aged Out No isidro daina eligible based on patient's age to complete this topic RSV Immunizations Under 20 Months Aged Out No longer eligible based on patient's age to complete this topic Insurance 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
--- OUTSIDE RECORDS SUMMARY | 2025-06-09 08:23 | XMS_ITS | Encounter Summary ---
Author Organization [facility] Address [address] [place] [address] Care Team Providers Care Sliver Machine Operator Name Role Phone Mao Keller MD Unavailable Ishan Bradley DO Unavailable Mao Keller MD Unavailable [phone] Tori Dyer DO Primary Care Provider [phone] Encounter Details Date Type Department Care Team (Late st Contact Info) Description 04/06/2025 Lab Requisition [facility] - DermPath Lab [address] [facility], [facility] [place] [id number] Litzy Colunga DO [address] [facility] 3 [place] [address] 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 Social History Tobacco Use Types Packs/Day Years Used Date Smoking Tobacco: Former Cigarettes 1 25 0 07/09/1968 - 07/09/1993 Alcohol Use Standard Drinks/Week Comments Yes 12.5 (1 standard drink = 0.6 oz pure alcohol) Comments Unknown Sex and Gender Information Value Date Recorded Sex Assigned at Not on file Legal Sex Female 12:57 PM SUPERVISOR FRONT Gender Identity Not on file Sexual Orientation Not on file documented as of this encounter Plan of Treatment Not on file documented as of this encounter Procedures Procedure Name Priority Date/Time Associated Diagnosis Comments DERMATOPATHOLOGY Routine 04/06/2025 7:00 AM CDT 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 SKIN, left upper back: DERMAL SCAR RESIDUAL SQUAMOUS CELL CARCINOMA AND BASAL CELL CARCINOMA NOT IDENTIFIED (L90.5) (see microscopic description) 1:59 PM CDT DERMATOPATHOLOGY LABORATORY at 1359 CDT Clinical History SCC in situ. Check Margins 1:59 PM CDT DERMATOPATHOLOGY LABORATORY Gross Description Specimen A: Received is one formalin filled container labeled with the patient's name and designated left upper back. The specimen consists of a non-oriented ellipse of skin measuring 12u97m1 mm. The epidermal surface is unremarkable. The margin is inked green. The 12 o'clock and 6 o'clock tips are submitted in cassette 1. The remainder of the ellipse is serially sectioned and submitted in cassette 2. 1:59 PM CDT DERMATOPATHOLOGY LABORATORY Microscopic Description Specimen A. SKIN, left upper back: There are fibroblasts and collagen bundles oriented parallel to the skin surface. There are elongated blood vessels, some of which are oriented perpendicular to the skin surface. No residual squamous cell carcinoma or basal carcinoma are identified. 1:59 PM CDT DERMATOPATHOLOGY LABORATORY Disclaimer An external and internal positive and negative controls are appropriate for the histochemical, immunohistochemical and immunofluorescence stain(s) in this case (if any), except where stated explicitly. The performance characteristics of the stain(s) cited in this report were developed and its performance characteristic determined by the Dermatopathology Laboratory at [facility], directed by Dr. Jazmyne Hartman. These tests need not be, and therefore are not, approved by the [place] Food and Drug Administration. The tests are used for clinical purposes. 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
--- OUTSIDE RECORDS SUMMARY | 2025-06-09 08:23 | XMS_ITS | Encounter Summary ---
Author Organization [facility] Address [address] [place] [address] Care Team Providers Care Condenser Operator Name Role Phone Mao Keller MD Unavailable [phone] Ishan Bradley DO Unavailable Mao Keller MD Unavailable [phone] Tori Dyer DO Primary Care Provider [phone] Encounter Details Date Type Department Care Team (Late st Contact Info) Description 01/14/2024 Lab Requisition [facility] - DermPath Lab [address] [facility], [facility] [place] [phone] Litzy Colunga DO [address] [facility] 3 [place] [address] Social History Tobacco Use Types Packs/Day Years Used Date Smoking Tobacco: Former Cigarettes 1 25 0 07/09/1968 - 07/09/1993 Alcohol Use Standard Drinks/Week Comments Yes 12.5 (1 standard drink = 0.6 oz pure alcohol) Comments Unknown Sex and Gender Information Value Date Recorded Sex Assigned at Not on file Legal Sex Female 12:57 PM 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 Gender Identity Not on file Sexual Orientation Not on file documented as of this encounter Plan of Treatment Not on file documented as of this encounter Procedures Procedure Name Priority Date/Time Associated Diagnosis Comments DERMATOPATHOLOGY Routine 01/14/2024 2:36 PM CDT documented in this encounter Results * DERMATOPATHOLOGY (01/14/2024 2:36 PM CDT) Case Report Dermatopathology Report Case: [id number] Authorizing Provider: Litzy Colunga DO Collected: 01/14/2024 02:36 PM Ordering Location: [facility] - Received: 01/16/2024 06:11 AM DermPath Lab Pathologist: Elizabeth Suazo MD Specimens: A) - Skin, left thigh B) - Skin, left shoulder 3:20 PM CDT DERMATOPATHOLOGY LABORATORY Final Diagnosis Specimen A. SKIN, left thigh: BASAL CELL CARCINOMA, NODULAR TYPE (C44.719) Specimen B. 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 The specimen consists of a shave biopsy measuring 8x7x2 mm. Jar 0. Specimen B: Received is one formalin filled container labeled with the patient's name and designated left shoulder. The specimen consists of a shave biopsy measuring 8x8x1 mm. Jar 0. 3:20 PM CDT DERMATOPATHOLOGY LABORATORY Microscopic Description Specimen A. SKIN, left thigh: Within the dermis there are aggregates of basaloid cells with a high nuclear to cytoplasmic ratio and peripheral palisading. Specimen B. SKIN, left shoulder: The epidermis shows parakeratosis, full thickness disorderly maturation of keratinocytes, mitoses at different levels, and dyskeratotic cells. 3:20 PM CDT DERMATOPATHOLOGY LABORATORY Disclaimer An external and internal positive and negative controls are appropriate for the histochemical, immunohistochemical and immunofluorescence stain(s) in this case (if any), except where stated explicitly. The performance characteristics of the stain(s) cited in this report were developed and its performance characteristic determined by the Dermatopathology Laboratory at [facility], directed by Dr. Jazmyne Hartman. These tests need not be, and therefore are not, approved by the [place] Food and Drug Administration. The tests are used for clinical purposes. Billing Codes Specimen Charges Stain Charges 86634 31785 1 1 4 3:20 PM CDT DERMATOPATHOLOGY LABORATORY Embedded Images 4 3:20 PM CDT DERMATOPATHOLOGY LABORATORY Pathology/Cytology TISSUE SPECIMEN FROM SKIN / Unknown 01/14/2024 2:36 PM CDT 01/16/2024 6:11 AM CDT Miscellaneous samples (specimen) TISSUE SPECIMEN FROM SKIN / Unknown 01/14/2024 2:36 PM CDT 01/16/2024 6:11 AM CDT Litzy Colunga DO LAB - PATHOLOGY/CYTOLOGY ORDERABLES Final Result DERMATOPATHOLOGY LABORATORY [facility] - Department of Dermatology [facility] [address] [place] [address], [address] [phone] documented in this encounter Visit Diagnoses Not on filedocumented in this encounter Care Teams Condenser Operator Relationship Specialty Start Date End Date Tori Dyer DO [address] [place] [address] PCP - General 06/14/22 Mao Keller MD Orthopedic Surgery 08/24/11 Ishan Bradley DO Orthopedic Surgery 10/07/13 [place] [id number] [address] [address] Orthopedic Surgery 10/26/15 documented as of this encounter
--- OUTSIDE RECORDS SUMMARY | 2025-06-09 08:23 | XMS_ITS | Encounter Summary ---
Author Organization [facility] Address [address] [place] [address] Care Team Providers Care Mainframe Systems Programmer Name Role Phone Mao Keller MD Unavailable [phone] Ishan Bradley DO Unavailable Mao Keller MD Unavailable [phone] Tori Dyer DO Primary Care Provider [phone] Encounter Details Date Type Department Care Team (Late st Contact Info) Description 04/13/2025 Lab Requisition [facility] - DermPath Lab [address] 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 Gender Identity Not on file Sexual Orientation Not on file documented as of this encounter Plan of Treatment Not on file documented as of this encounter Procedures Procedure Name Priority Date/Time Associated Diagnosis Comments DERMATOPATHOLOGY Routine 04/13/2025 7:00 AM CDT 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 The epidermal surface is unremarkable. The [...] at the lateral margin of the specimen. 5:02 PM CDT DERMATOPATHOLOGY LABORATORY Disclaimer An external and internal positive and negative controls are appropriate for the histochemical, immunohistochemical and immunofluorescence stain(s) in this case (if any), except where stated explicitly. The performance characteristics of the stain(s) cited in this report were developed and its performance characteristic determined by the Dermatopathology Laboratory at [facility], directed by Dr. Jazmyne Hartman. These tests need not be, and therefore are not, approved by the [place] Food and Drug Administration. The tests are used for clinical purposes. 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
--- OUTSIDE RECORDS SUMMARY | 2025-06-09 08:23 | XMS_ITS | Encounter Summary ---
Author Organization [facility] Address [address] [place] [address] Care Team Providers Care Sewing Inspector Name Role Phone Mao Keller MD Unavailable [phone] Ishan Bradley DO Unavailable Mao Keller MD Unavailable [phone] Tori Dyer DO Primary Care Provider [phone] Encounter Details Date Type Department Care Team (Late st Contact Info) Description 10/16/2023 Lab Requisition [facility] - DermPath Lab [address] [facility], [place] [id number] Litzy Colunga DO [address] [facility] 3L [place] [address] Social History Tobacco Use Types Packs/Day Years Used Date Smoking Tobacco: Former Cigarettes 1 25 0 07/09/1968 - 07/09/1993 Alcohol Use Standard Drinks/Week Comments Yes 12.5 (1 standard drink = 0.6 oz pure alcohol) Comments Unknown Sex and Gender Information Value Date Recorded Sex Assigned at Not on file Legal Sex Female 12:57 PM 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 Gender Identity Not on file Sexual Orientation Not on file documented as of this encounter Plan of Treatment Not on file documented as of this encounter Procedures Procedure Name Priority Date/Time Associated Diagnosis Comments DERMATOPATHOLOGY Routine 10/16/2023 3:24 PM CDT documented in this encounter Results * DERMATOPATHOLOGY (10/16/2023 3:24 PM CDT) Case Report Dermatopathology Report Case: [id number] Authorizing Provider: Litzy Colunga DO Collected: 10/16/2023 03:24 PM Ordering Location: [facility] - Received: 10/17/2023 11:24 AM DermPath Lab Pathologist: Elizabeth Suazo MD Specimen: Skin, left upper arm 2:10 PM CDT DERMATOPATHOLOGY LABORATORY Final Diagnosis Specimen A. SKIN, left upper arm: DERMAL SCAR RESIDUAL SQUAMOUS CELL CARCINOMA NOT IDENTIFIED (L90.5) 2:10 PM CDT DERMATOPATHOLOGY LABORATORY at 1410 CDT Clinical History SCCIS BX Proven 2:10 PM CDT DERMATOPATHOLOGY LABORATORY Gross Description Specimen A: Received is one formalin filled container labeled with the patient's name and designated left upper arm. The specimen consists of a non-oriented ellipse of skin measuring 70c62o9 mm. The margin is inked green. The 12 o'clock and 6 o'clock tips are submitted in cassette 1. The remainder of the ellipse is serially sectioned and submitted in cassette 2 - 3. Jar 0. 2:10 PM CDT DERMATOPATHOLOGY LABORATORY Microscopic Description Specimen A. SKIN, left upper arm: There are fibroblasts and collagen bundles oriented parallel to the skin surface. There are elongated blood vessels, some of which are oriented perpendicular to the skin surface. No residual squamous cell carcinoma is identified. 2:10 PM CDT DERMATOPATHOLOGY LABORATORY Disclaimer An external and internal positive and negative controls are appropriate for the histochemical, immunohistochemical and immunofluorescence stain(s) in this case (if any), except where stated explicitly. The performance characteristics of the stain(s) cited in this report were developed and its performance characteristic determined by the Dermatopathology Laboratory at [facility], directed by Dr. Jazmyne Hartman. These tests need not be, and therefore are not, approved by the [place] Food and Drug Administration. The tests are used for clinical purposes. Billing Codes Specimen Charges Stain Charges 85975 1 2:10 PM CDT DERMATOPATHOLOGY LABORATORY Embedded Images 04/11/202 4 2:10 PM CDT DERMATOPATHOLOGY LABORATORY Pathology/Cytolo gy TISSUE SPECIMEN FROM SKIN / Unknown 10/16/2023 3:24 PM CDT 10/17/2023 11:24 AM CDT us Litzy Colunga LAB - PATHOLOGY/CYTOLOGY ORDERABLES Final Result DERMATOPATHOLOGY LABORATORY [facility] - Department of Dermatology [facility] [address] [place] [address], [address] [phone] documented in this encounter Visit Diagnoses Not on filedocumented in this encounter Care Teams Sewing Inspector Relationship Specialty Start Date End Date Tori Dyer DO [address] [place] [address] PCP - General 06/14/22 Mao Keller MD Orthopedic Surgery 08/24/11 Ishan Bradley DO Orthopedic Surgery 10/07/13 [place] [id number] [address] Orthopedic Surgery 10/26/15 documented as of this encounter
--- OUTSIDE RECORDS SUMMARY | 2025-06-09 08:23 | XMS_ITS | Encounter Summary ---
Author Organization [facility] Address [address] [place] [address] Care Team Providers Care Batch Tank Controller Name Role Phone Mao Keller MD Unavailable Ishan Bradley DO Unavailable Mao Keller MD Unavailable [phone] Tori Dyer DO Primary Care Provider [phone] Encounter Details Date Type Department Care Team (Late st Contact Info) Description 07/25/2023 Lab Requisition [facility] - DermPath Lab [address] [facility] [place] [phone] Lizty Colunga DO [address] [facility] 3 [place] [address] Social History Tobacco Use Types Packs/Day Years Used Date Smoking Tobacco: Former Cigarettes 1 25 0 07/09/1968 - 07/09/1993 Alcohol Use Standard Drinks/Week Comments Yes 12.5 (1 standard drink = 0.6 oz pure alcohol) Comments Unknown Sex and Gender Information Value Date Recorded Sex Assigned at Not on file Legal Sex Female 12:57 PM INSTRUMENTATION INSTRUCTOR Gender Identity Not on file Sexual Orientation Not on file documented as of this encounter Plan of Treatment Not on file documented as of this encounter Procedures Procedure Name Priority Date/Time Associated Diagnosis Comments DERMATOPATHOLOGY Routine 07/25/2023 2:11 PM INSTRUMENTATION INSTRUCTOR documented in this encounter Results * DERMATOPATHOLOGY (07/25/2023 2:11 PM [facility]) Case Report Dermatopathology Report Case: [id number] Authorizing Provider: Litzy Colunga DO Collected: 07/25/2023 02:11 PM Ordering Location: [facility] DermPath Lab Received: 2023 01:59 PM Pathologist: Delicia Luna MD Specimen: Skin, right chest 11:22 AM [facility] DERMATOPATHOLOGY LABORATORY Final Diagnosis Specimen A. SKIN, right chest: DERMAL SCAR RESIDUAL SQUAMOUS CELL CARCINOMA NOT IDENTIFIED (L90.5) 11:22 AM [facility] DERMATOPATHOLOGY LABORATORY at 1122 INSTRUMENTATION INSTRUCTOR Clinical History Bx Proven SCCIS. Check margins. 11:22 AM [facility] DERMATOPATHOLOGY LABORATORY Gross Description Specimen A: Received is one formalin filled container labeled with the patient's name and designated right chest. The specimen consists of a non-oriented ellipse of skin measuring 04k42i5 mm. The epidermal surface is unremarkable. The margin is inked green. The 12 o'clock and 6 o'clock tips are submitted in cassette 1. The remainder of the ellipse is serially sectioned and submitted in cassette 2. An extra piece of skin measuring 4x3x1 mm is submitted in cassette 3. Jar 0. 11:22 AM [facility] DERMATOPATHOLOGY LABORATORY Microscopic Description Specimen A. SKIN, right chest: There are fibroblasts and collagen bundles oriented parallel to the skin surface. There are elongated blood vessels, some of which are oriented perpendicular to the skin surface. No residual squamous cell carcinoma is identified. 11:22 AM [facility] DERMATOPATHOLOGY LABORATORY Disclaimer An external and internal positive and negative controls are appropriate for the histochemical, immunohistochemical and immunofluorescence stain(s) in this case (if any), except where stated explicitly. The performance characteristics of the stain(s) cited in this report were developed and its performance characteristic determined by the Dermatopathology Laboratory at [facility], directed by Dr. Jazmyne Hartman. These tests need not be, and therefore are not, approved by the [place] Food and Drug Administration. The tests are used for clinical purposes. Billing Codes Specimen Charges Stain Charges 33537 1 01/24/202 4 11:22 AM INSTRUMENTATION INSTRUCTOR DERMATOPATHOLOGY LABORATORY Embedded Images 4 11:22 AM INSTRUMENTATION INSTRUCTOR DERMATOPATHOLOGY LABORATORY Pathology/Cytolo gy TISSUE SPECIMEN FROM SKIN / Unknown 07/25/2023 2:11 PM INSTRUMENTATION INSTRUCTOR 2023 1:59 PM INSTRUMENTATION INSTRUCTOR Litzypetty Foreman Colunga LAB - PATHOLOGY/CYTOLOGY ORDERABLES Final Result DERMATOPATHOLOGY LABORATORY [facility] - Department of Dermatology [facility] [address] [place] [address], [address] [phone] documented in this encounter Visit Diagnoses Not on filedocumented in this encounter Care Teams Batch Tank Controller Relationship Specialty Start Date End Date Tori Dyer DO [address] [place] [address] PCP - General 06/14/22 Mao Keller MD Orthopedic Surgery 08/24/11 Ishan Bradley DO Orthopedic Surgery 10/07/13 [place] [address] [address] Orthopedic Surgery 10/26/15 documented as of this encounter
--- OUTSIDE RECORDS SUMMARY | 2025-06-09 08:23 | XMS_ITS | Encounter Summary ---
Author Organization [facility] Address [address] [place] [address] Care Team Providers Care Welder Repair Name Role Phone Mao Keller MD Unavailable [phone] Ishan Bardley DO Unavailable Mao Keller MD Unavailable [phone] Tori Dyer DO Primary Care Provider [phone] Encounter Details Date Type Department Care Team (Late st Contact Info) Description 09/17/2023 Lab Requisition [facility] - DermPath Lab [address] [facility], [facility] [place] [phone] Litzy Colunga DO [address] [facility] 3 [place] [address] Social History Tobacco Use Types Packs/Day Years Used Date Smoking Tobacco: Former Cigarettes 1 25 0 07/09/1968 - 07/09/1993 Alcohol Use Standard Drinks/Week Comments Yes 12.5 (1 standard drink = 0.6 oz pure alcohol) Comments Unknown Sex and Gender Information Value Date Recorded Sex Assigned at Not on file Legal Sex Female 12:57 PM BEADER Gender Identity Not on file Sexual Orientation Not on file documented as of this encounter Plan of Treatment Not on file documented as of this encounter Procedures Procedure Name Priority Date/Time Associated Diagnosis Comments DERMATOPATHOLOGY Routine 09/17/2023 1:27 PM CDT documented in this encounter Results * DERMATOPATHOLOGY (09/17/2023 1:27 PM CDT) Case Report Dermatopathology Report Case: [id number] Authorizing Provider: Litzy Colunga DO Collected: 09/17/2023 01:27 PM Ordering Location: [facility] - Received: 09/18/2023 12:44 PM DermPath Lab Pathologist: Delicia Luna MD Specimens: A) - Skin, left upper arm B) - Skin, right frontal hairline C) - Skin, right upper back 11:27 AM T DERMATOPATHOLOGY LABORATORY Final Diagnosis Specimen A. SKIN, left upper arm: SQUAMOUS CELL CARCINOMA IN SITU, PRESENT AT THE BASE OF THE SPECIMEN (D04.62) (see microscopic description and comment) Specimen B. SKIN, right frontal hairline: BASAL CELL CARCINOMA, NODULAR TYPE (C44.41) (see microscopic description) Specimen C. SKIN, right upper back: ACTINIC KERATOSIS (L57.0) 11:27 AM T DERMATOPATHOLOGY LABORATORY at 1127 CDT Clinical History A-C: R/O NMSC 11:27 AM CDT DERMATOPATHOLOGY LABORATORY Gross Description Specimen A: Received is one formalin filled container labeled with the patient's name and designated left upper arm. The specimen consists of a shave biopsy measuring 4x3x1 mm. Jar 0. Specimen B: Received is one formalin filled container labeled with the patient's name and designated right frontal hairline. The specimen consists of a shave biopsy measuring 3x3x1 mm. Jar 0. Specimen C: Received is one formalin filled container labeled with the patient's name and designated right upper back. The specimen consists of a shave biopsy measuring 4x5x1 mm. Jar 0. 11:27 AM CDT DERMATOPATHOLOGY LABORATORY Microscopic Description Specimen A. SKIN, left upper arm: The epidermis shows parakeratosis, full thickness disorderly maturation of keratinocytes, mitoses at different levels, and dyskeratotic cells. The lesion extends to the base of the biopsy. COMMENT: An invasive squamous cell carcinoma cannot be ruled out. Specimen B. SKIN, right frontal hairline: Within the dermis there are aggregates of basaloid cells with a high nuclear to cytoplasmic ratio and peripheral palisading. Additional deeper sections were obtained and reviewed. Specimen C. SKIN, right upper back: There is focal parakeratosis. The lower half of the epidermis shows disorderly maturation of keratinocytes with nuclear pleomorphism. 4 11:27 AM CDT DERMATOPATHOLOGY LABORATORY Disclaimer An external and internal positive and negative controls are appropriate for the histochemical, immunohistochemical and immunofluorescence stain(s) in this case (if any), except where stated explicitly. The performance characteristics of the stain(s) cited in this report were developed and its performance characteristic determined by the Dermatopathology Laboratory at [facility], directed by Dr. Jazmyne Hartman. These tests need not be, and therefore are not, approved by the [place] Food and Drug Administration. The tests are used for clinical purposes. Billing Codes Specimen Charges Stain Charges 45426 78527 51940 1 1 1 4 11:27 AM CDT DERMATOPATHOLOGY LABORATORY Embedded Images 4 11:27 AM CDT DERMATOPATHOLOGY LABORATORY Pathology/Cytology TISSUE SPECIMEN FROM SKIN / Unknown 09/17/2023 1:27 PM CDT 09/18/2023 12:44 PM CDT Miscellaneous samples (specimen) TISSUE SPECIMEN FROM SKIN / Unknown 09/17/2023 1:27 PM CDT 09/18/2023 12:44 PM CDT Miscellaneous samples (specimen) TISSUE SPECIMEN FROM SKIN / Unknown 09/17/2023 1:27 PM CDT 09/18/2023 12:44 PM CDT Litzy Colunga DO LAB - PATHOLOGY/CYTOLOGY ORDERABLES Final Result DERMATOPATHOLOGY LABORATORY [facility] - Department of Dermatology [address], [address] [phone] documented in this encounter Visit Diagnoses Not on filedocumented in this encounter Care Teams Welder Repair Relationship Specialty Start Date End Date Tori Dyer DO [address] [place] [address] PCP - General 06/14/22 Mao Keller MD Orthopedic Surgery 08/24/11 Ishan Bradley DO Orthopedic Surgery 10/07/13 [place] [id number] [address] Orthopedic Surgery 10/26/15 documented as of this encounter
--- OUTSIDE RECORDS SUMMARY | 2025-06-09 08:23 | XMS_ITS | Clinical Summary ---
Author Organization [facility] Address [address] [place] [address] Care Team Providers Care Surveillance Director Name Role Phone Unavailable Primary Care Provider Unavailabl e Encounters Date Type Department Care Team Description 04/29/2025 External Device Data [facility] ABSTRACTION Provider, Abstract 04/28/2025 External Device Data [facility] ABSTRACTION Provider, Abstract 03/31/2025 External Device Data [facility] ABSTRACTION Provider, Abstract 03/24/2025 External Device Data [facility] ABSTRACTION Provider, Abstract 03/20/2025 8:47 AM CDT - 03/20/2025 11:59 PM CDT Hospital Encounter [facility] [address] [place] [address] Vniay Leger MD Discharge Disposition: Home or Self Care from Last 3 Months Social History Tobacco Use Types Packs/Day Years Used Date Smoking Tobacco: Never Assessed Comments Unknown Sex and Gender Information Value Date Recorded Sex Assigned at Not on file Legal Sex Female 7:38 PM DIRECTOR NICU Gender Identity Not on file Sexual Orientation Not on file Plan of Treatment Health Maintenance Due Date Last Done Comments COLORECTAL SCREENING 1994 Colorectal Cancer Screening 1994 FIT-DNA Q 3 years 1994 FIT/FOBT Q 1 year 1994 Flex Sig/CT Colonography Q 5 years 1994 OSTEOPOROSIS SCREENING 2014 RSV VACCINE (60+ or ) (1 - 1-dose 75+ series) 2024 INFLUENZA VACCINE (#1) 2025 , 04/30/2023, 04/23/2022, Additional history exists DTAP/TDAP/TD VACCINES (2 - T d or Tdap) 10/18/2028 10/18/2018, 10/01/2013, 10/01/2013 ZOSTER VACCINE Completed 04/24/2018, 01/28/2018 PNEUMOCOCCAL VACCINE 50+ YEARS Completed 1 08/16/2020, 03/21/2017, 04/14/2016, Additional history exists Procedures Procedure Name Priority Date/Time Associated Diagnosis Comments MAMMO 3D DO SCREEN BILAT W OR WO CAD Routine 03/20/2025 9:10 AM CDT Visit for screening mammogram from Last 3 Months Results * MAMMO 3D DO SCREEN BILAT W OR WO CAD (03/20/2025 9:10 AM CDT) Anatomical Region Laterality Modality Breast Bilateral Mammography 03/20/2025 9:10 AM CDT Impressions 03/20/2025 9:27 AM CDT IMPRESSION: NO MAMMOGRAPHIC EVIDENCE OF MALIGNANCY. OVERALL FINAL ASSESSMENT: BI-RADS CATEGORY 1: Negative. ROUTINE SCREENING MAMMOGRAPHY IS RECOMMENDED IN 12 MONTHS. A normal letter will be sent to patient. Narrative 03/20/2025 9:27 AM CDT EXAM: MAMMO 3D DO SCREEN BILAT W OR WO CAD STUDY DATE: 03/20/2025 9:10 AM CLINICAL INDICATION: 74 years old female presents for routine screening mammography. COMPARISON: Prior mammograms, the most recent dated 03/14/2024 PROCEDURE: CC and MLO digital mammographic views of the bilateral breasts are obtained. Computer Aided Detection (CAD) was utilized. Tomosynthesis was done with all views. FINDINGS: BREAST COMPOSITION: There are scattered areas of fibroglandular density Right breast: There are no spiculated masses, suspicious microcalcifications or areas of architectural distortion in the right breast. Left breast: There are no spiculated masses, suspicious microcalcifications or areas of architectural distortion in the left breast. us Vinay Leger MD MAMMO ORDERABLES Final Result from Last 3 Months Insurance MEDICARE PART A AND [place] [address] [facility]
--- OUTSIDE RECORDS SUMMARY | 2025-06-09 08:23 | XMS_ITS | Encounter Summary ---
Author Organization [facility] Address [address] [place] [address] Care Team Providers Care Auditing Coder Name Role Phone Mao Keller MD Unavailable Ishan Bradley DO Unavailable Mao Keller MD Unavailable [phone] Tori Dyer DO Primary Care Provider [phone] Encounter Details Date Type Department Care Team (Late st Contact Info) Description 07/11/2023 Lab Requisition [facility] - DermPath Lab [address] [facility], [facility] [place] [phone] Litzy Colunga DO [address] [facility] 3 [place] [address] Social History Tobacco Use Types Packs/Day Years Used Date Smoking Tobacco: Former Cigarettes 1 25 0 07/09/1968 - 07/09/1993 Alcohol Use Standard Drinks/Week Comments Yes 12.5 (1 standard drink = 0.6 oz pure alcohol) Comments Unknown Sex and Gender Information Value Date Recorded Sex Assigned at Not on file Legal Sex Female 12:57 PM SUPERVISOR HARVESTING Gender Identity Not on file Sexual Orientation Not on file documented as of this encounter Plan of Treatment Not on file documented as of this encounter Procedures Procedure Name Priority Date/Time Associated Diagnosis Comments DERMATOPATHOLOGY Routine 07/11/2023 2:07 PM SUPERVISOR HARVESTING documented in this encounter Results * DERMATOPATHOLOGY (07/11/2023 2:07 PM [facility]) Case Report Dermatopathology Report Case: [id number] Authorizing Provider: Litzy Colunga DO Collected: 07/11/2023 02:07 PM Ordering Location: [facility] DermPath Lab Received: 07/12/2023 12:41 PM Pathologist: Elizabeth Suazo MD Specimen: Skin, left upper arm 11:38 AM [facility] DERMATOPATHOLOGY LABORATORY Final Diagnosis Specimen A. SKIN, left upper arm: SQUAMOUS CELL CARCINOMA IN SITU (DYE'S DISEASE) (D04.62) NOT PRESENT AT MARGIN DERMAL SCAR (L90.5) 11:38 AM [facility] DERMATOPATHOLOGY LABORATORY at 1138 SUPERVISOR HARVESTING Clinical History SCC Bx Proven. Check margins. 11:38 AM [facility] DERMATOPATHOLOGY LABORATORY Gross Description Specimen A: Received is one formalin filled container labeled with the patient's name and designated left upper arm. The specimen consists of a non-oriented ellipse of skin measuring 96k67i8 mm. The epidermal surface is unremarkable. The margin is inked green. The 12 o'clock and 6 o'clock tips are submitted in cassette 1. The remainder of the ellipse is serially sectioned and submitted in cassette 2-4. Jar 0. 11:38 AM [facility] DERMATOPATHOLOGY LABORATORY Microscopic Description Specimen A. SKIN, [...] are oriented perpendicular to the skin surface. 11:38 AM [facility] DERMATOPATHOLOGY LABORATORY Disclaimer An external and internal positive and negative controls are appropriate for the histochemical, immunohistochemical and immunofluorescence stain(s) in this case (if any), except where stated explicitly. The performance characteristics of the stain(s) cited in this report were developed and its performance characteristic determined by the Dermatopathology Laboratory at [facility], directed by Dr. Jazmyne Hartman. These tests need not be, and therefore are not, approved by the [place] Food and Drug Administration. The tests are used for clinical purposes. Billing Codes Specimen Charges Stain Charges 79900 1 4 11:38 AM SUPERVISOR HARVESTING DERMATOPATHOLOGY LABORATORY Embedded Images 4 11:38 AM SUPERVISOR HARVESTING DERMATOPATHOLOGY LABORATORY Pathology/Cytolo gy TISSUE SPECIMEN FROM SKIN / Unknown 07/11/2023 2:07 PM SUPERVISOR HARVESTING 07/12/2023 12:41 PM SUPERVISOR HARVESTING Litzy Colunga DO LAB - PATHOLOGY/CYTOLOGY ORDERABLES Final Result DERMATOPATHOLOGY LABORATORY [facility] - Department of Dermatology [address], [address] [phone] documented in this encounter Visit Diagnoses Not on filedocumented in this encounter Care Teams Auditing Coder Relationship Specialty Start Date End Date Tori Dyer DO [address] [place] [address] PCP - General 06/14/22 Mao Keller MD Orthopedic Surgery 08/24/11 Ishan Bradley DO Orthopedic Surgery 10/07/13 [place] [address] [address] Orthopedic Surgery 10/26/15 documented as of this encounter
--- OUTSIDE RECORDS SUMMARY | 2025-06-09 08:23 | XMS_ITS | Encounter Summary ---
Author Organization [facility] Address [address] [place] [address] Care Team Providers Care Mechanical Equipment Sales Engineer Name Role Phone Mao Keller MD Unavailable [phone] Ishan Bradley DO Unavailable Mao Keller MD Unavailable [phone] Tori Dyer DO Primary Care Provider [phone] Encounter Details Date Type Department Care Team (Late st Contact Info) Description 06/05/2023 Lab Requisition [facility] - DermPath Lab [address] [facility], [facility] [place] [id number] Litzy Colunga DO [address] [facility] 3 DEPT [place] [address] Social History Tobacco Use Types Packs/Day Years Used Date Smoking Tobacco: Former Cigarettes 1 25 0 07/09/1968 - 07/09/1993 Alcohol Use Standard Drinks/Week Comments Yes 12.5 (1 standard drink = 0.6 oz pure alcohol) Comments Unknown Sex and Gender Information Value Date Recorded Sex Assigned at Not on file Legal Sex Female 12:57 PM MANAGER MOBILITY Gender Identity Not on file Sexual Orientation Not on file documented as of this encounter Plan of Treatment Not on file documented as of this encounter Procedures Procedure Name Priority Date/Time Associated Diagnosis Comments DERMATOPATHOLOGY Routine 06/05/2023 1:25 PM MANAGER MOBILITY documented in this encounter Results * DERMATOPATHOLOGY (06/05/2023 1:25 PM [facility]) Case Report Dermatopathology Report Case: [id number] Authorizing Provider: Litzy Colunga DO Collected: 06/05/2023 01:25 PM Ordering Location: [facility] DermPath Lab Received: 06/06/2023 03:11 PM Pathologist: Brianna Suazo MD Specimens: A) - Skin, left upper arm B) - Skin, left calf C) - Skin, right chest 3 2:30 PM [facility] DERMATOPATHOLOGY LABORATORY Final Diagnosis Specimen A. SKIN, left upper arm: SQUAMOUS CELL CARCINOMA, WELL DIFFERENTIATED (C44.629) Specimen B. SKIN, left calf: BASAL CELL CARCINOMA, NODULAR TYPE (C44.719) Specimen C. SKIN, right chest: SQUAMOUS CELL CARCINOMA IN SITU, PIGMENTED (DYE'S DISEASE) (D04.5) 3 2:30 PM [facility] DERMATOPATHOLOGY LABORATORY at 1430 MANAGER MOBILITY Clinical History A-C: R/O NMSC 2:30 PM [facility] DERMATOPATHOLOGY LABORATORY Gross Description Specimen A: Received is one formalin filled container labeled with the patient's name and designated left upper arm. The specimen consists of a shave biopsy measuring 9x8x3 mm. Jar 0. Specimen B: Received is one formalin filled container labeled with the patient's name and designated left calf. The specimen consists of a shave biopsy measuring 8x5x1 mm. Jar 0. Specimen C: Received is one formalin filled container labeled with the patient's name and designated right chest. The specimen consists of a shave biopsy measuring 6x6x1 mm. Jar 0. 3 2:30 PM [facility] DERMATOPATHOLOGY LABORATORY Microscopic Description Specimen A. SKIN, left upper arm: Arising in the epidermis and extending into the dermis there are irregularly shaped aggregates of keratinocytes showing evidence of premature cornification. Specimen B. SKIN, left calf: Within the dermis there are aggregates of basaloid cells with a high nuclear to cytoplasmic ratio and peripheral palisading. Specimen C. SKIN, right chest: The epidermis shows parakeratosis, full thickness disorderly maturation of keratinocytes, mitoses at different levels, and dyskeratotic cells. Pigmentation of keratinocytes is abundant. 3 2:30 PM MANAGER MOBILITY DERMATOPATHOLOGY LABORATORY Disclaimer An external and internal positive and negative controls are appropriate for the histochemical, immunohistochemical and immunofluorescence stain(s) in this case (if any), except where stated explicitly. The performance characteristics of the stain(s) cited in this report were developed and its performance characteristic determined by the Dermatopathology Laboratory at [facility], directed by Dr. Jazmyne Hartman. These tests need not be, and therefore are not, approved by the [place] Food and Drug Administration. The tests are used for clinical purposes. Billing Codes Specimen Charges Stain Charges 55447 71207 80036 1 1 1 3 2:30 PM MANAGER MOBILITY DERMATOPATHOLOGY LABORATORY Embedded Images 3 2:30 PM MANAGER MOBILITY DERMATOPATHOLOGY LABORATORY Pathology/Cytology TISSUE SPECIMEN FROM SKIN / Unknown 06/05/2023 1:25 PM MANAGER MOBILITY 06/06/2023 3:11 PM MANAGER MOBILITY Miscellaneous samples (specimen) TISSUE SPECIMEN FROM SKIN / Unknown 06/05/2023 1:25 PM MANAGER MOBILITY 06/06/2023 3:11 PM MANAGER MOBILITY Miscellaneous samples (specimen) TISSUE SPECIMEN FROM SKIN / Unknown 06/05/2023 1:25 PM MANAGER MOBILITY 06/06/2023 3:11 PM MANAGER MOBILITY Litzy Colunga DO LAB - PATHOLOGY/CYTOLOGY ORDERABLES Final Result DERMATOPATHOLOGY LABORATORY [facility] - Department of Dermatology [facility] Medicine [address] [place] [address], [address] [phone] documented in this encounter Visit Diagnoses Not on filedocumented in this encounter Care Teams Mechanical Equipment Sales Engineer Relationship Specialty Start Date End Date Tori Dyer DO [address] [place] [address] PCP - General 06/14/22 Mao Keller MD Orthopedic Surgery 08/24/11 Ishan Bradley DO Orthopedic Surgery 10/07/13 [place] [id number] [address] [address] Orthopedic Surgery 10/26/15 documented as of this encounter
--- OUTSIDE RECORDS SUMMARY | 2025-06-09 08:23 | XMS_ITS | Encounter Summary ---
Author Organization [facility] Address [address] [place] [address] Care Team Providers Care Box Truck Driver Name Role Phone Mao Keller MD Unavailable Ishan Bradley DO Unavailable Mao Keller MD Unavailable [phone] Tori Dyer DO Primary Care Provider [phone] Encounter Details Date Type Department Care Team (Late st Contact Info) Description 03/06/2024 Lab Requisition [facility] - DermPath Lab [address] [facility] [place] [phone] Litzy Colunga DO [address] [facility] [address]L [place] [address] Social History Tobacco Use Types Packs/Day Years Used Date Smoking Tobacco: Former Cigarettes 1 25 0 07/09/1968 - 07/09/1993 Alcohol Use Standard Drinks/Week Comments Yes 12.5 (1 standard drink = 0.6 oz pure alcohol) Comments Unknown Sex and Gender Information Value Date Recorded Sex Assigned at Not on file 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 Gender Identity Not on file Sexual Orientation Not on file documented as of this encounter Plan of Treatment Not on file documented as of this encounter Procedures Procedure Name Priority Date/Time Associated Diagnosis Comments DERMATOPATHOLOGY Routine 03/06/2024 3:43 PM CDT documented in this encounter Results * DERMATOPATHOLOGY (03/06/2024 3:43 PM CDT) Case Report Dermatopathology Report Case: [id number] Authorizing Provider: Litzy Colunga DO Collected: 03/06/2024 03:43 PM Ordering Location: [facility] - Received: 03/11/2024 06:12 AM DermPath Lab Pathologist: Delicia Luna MD Specimen: Skin, left shoulder 1:33 PM CDT DERMATOPATHOLOGY LABORATORY Final Diagnosis Specimen A. SKIN, left shoulder: DERMAL SCAR RESIDUAL SQUAMOUS CELL CARCINOMA NOT IDENTIFIED (L90.5) 1:33 PM CDT DERMATOPATHOLOGY LABORATORY at 1333 CDT Clinical History SCCIS bc proven Check margins 1:33 PM CDT DERMATOPATHOLOGY LABORATORY Gross Description Specimen A: Received is one formalin filled container labeled with the patient's name and designated left shoulder. The specimen consists of a non-oriented ellipse of skin measuring 60s70i1 mm. The epidermal surface is unremarkable. The margin is inked green. The 12 o'clock and 6 o'clock tips are submitted in cassette 1. The remainder of the ellipse is serially sectioned and submitted in cassette 2-3. Jar 0. 1:33 PM CDT DERMATOPATHOLOGY LABORATORY Microscopic Description Specimen A. SKIN, left shoulder: There are fibroblasts and collagen bundles oriented parallel to the skin surface. There are elongated blood vessels, some of which are oriented perpendicular to the skin surface. No residual squamous cell carcinoma is identified. 1:33 PM CDT DERMATOPATHOLOGY LABORATORY Disclaimer An external and internal positive and negative controls are appropriate for the histochemical, immunohistochemical and immunofluorescence stain(s) in this case (if any), except where stated explicitly. The performance characteristics of the stain(s) cited in this report were developed and its performance characteristic determined by the Dermatopathology Laboratory at [facility], directed by Dr. Jazmyne Hartman. These tests need not be, and therefore are not, approved by the [place] Food and Drug Administration. The tests are used for clinical purposes. Billing Codes Specimen Charges Stain Charges 83379 1 1:33 PM CDT DERMATOPATHOLOGY LABORATORY Embedded Images 4 1:33 PM CDT DERMATOPATHOLOGY LABORATORY Pathology/Cytolo gy TISSUE SPECIMEN FROM SKIN / Unknown 03/06/2024 3:43 PM CDT 03/11/2024 6:12 AM CDT Litzy Motleye Keanu NO LAB - PATHOLOGY/CYTOLOGY ORDERABLES Final Result DERMATOPATHOLOGY LABORATORY [facility] - Department of Dermatology [facility] Specialized Medicine [address] [place] [address], [address] [phone] documented in this encounter Visit Diagnoses Not on filedocumented in this encounter Care Teams Box Truck Driver Relationship Specialty Start Date End Date Tori Dyer DO [address] [address] PCP - General 06/14/22 Mao Keller MD Orthopedic Surgery 08/24/11 Ishan Bradley DO Orthopedic Surgery 10/07/13 [place] [id number] [address] Orthopedic Surgery 10/26/15 documented as of this encounter
--- OUTSIDE RECORDS SUMMARY | 2025-06-09 08:23 | XMS_ITS | Encounter Summary ---
Author Organization [facility] Address [address] [place] [address] Care Team Providers Care Brine Tank Tender Name Role Phone Mao Keller MD Unavailable Ishan Bradley DO Unavailable Mao Keller MD Unavailable [phone] Tori Dyer DO Primary Care Provider [phone] Encounter Details Date Type Department Care Team (Late st Contact Info) Description 07/24/2024 Lab Requisition [facility] - DermPath Lab [address] [facility], [facility] [place] [phone] Litzy Colunga DO [address] [facility] 3 [place] [address] Social History Tobacco Use Types Packs/Day Years Used Date Smoking Tobacco: Former Cigarettes 1 25 0 07/09/1968 - 07/09/1993 Alcohol Use Standard Drinks/Week Comments Yes 12.5 (1 standard drink = 0.6 oz pure alcohol) Comments Unknown Sex and Gender Information Value Date Recorded Sex Assigned at Not on file 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) Case Report Dermatopathology Report Case: [id number] Authorizing Provider: Litzy Colunga DO Collected: 07/24/2024 02:01 PM Ordering Location: [facility] - Received: 07/25/2024 03:12 PM DermPath Lab Pathologist: Elizabeth Suazo MD Specimens: A) - Skin, post crown B) - Skin, left wrist C) - Skin, left chest D) - Skin, right post upper arm 4:[address] [facility] DERMATOPATHOLOGY LABORATORY Final Diagnosis Specimen A. SKIN, post crown: HYPERPLASTIC (HYPERTROPHIC) ACTINIC KERATOSIS (L57.0) DERMAL SCAR (L90.5) FOLLICULITIS, SUPPURATIVE (L73.8) (see microscopic description) Specimen B. SKIN, left wrist: SEBORRHEIC KERATOSIS, MACULAR (L82.1) Specimen C. SKIN, left chest: ACTINIC KERATOSIS, LICHENOID (L57.0) Specimen D. SKIN, right post upper arm: BASAL CELL CARCINOMA, SUPERFICIAL MULTIFOCAL (C44.612) 4:[address] [facility] DERMATOPATHOLOGY LABORATORY at 1607 SENIOR JAVA UI DEVELOPER Clinical History A: R/O NMSC B: [place] R/O Atypia C-D: R/O NMSC 4:[address] [facility] DERMATOPATHOLOGY LABORATORY Gross Description Specimen A: Received is one formalin filled container labeled with the patient's name and designated post crown. The specimen consists of a shave biopsy measuring 6x5x1 mm. Jar 0. Specimen B: Received is one formalin filled container labeled with the patient's name and designated left wrist. The specimen consists of a shave biopsy measuring 10x5x1 mm. Jar 0. Specimen C: Received is one formalin filled container labeled with the patient's name and designated left chest. The specimen consists of a shave biopsy measuring 6x5x1 mm. Jar 0. Specimen D: Received is one formalin filled container labeled with the patient's name and designated right post upper arm. The specimen consists of a shave biopsy measuring 6x6x1 mm. Jar 0. 4:[address] [facility] DERMATOPATHOLOGY LABORATORY Microscopic Description Specimen A. SKIN, post crown: There is hyperkeratosis alternating with parakeratosis. There is epidermal hyperplasia with disorderly maturation of keratinocytes with nuclear pleomorphism confined to the lower half of the epidermis. There are fibroblasts and collagen bundles oriented parallel to the skin surface with elongated blood vessels, some of which are oriented perpendicular to the skin surface. Sections show the follicular infundibulum, with numerous neutrophils. Specimen B. SKIN, left wrist: Sections show a relatively broad, flat proliferation of small keratinocytes. The surface is gently papillated, and there is increased basilar pigmentation. Specimen C. SKIN, left chest: There is focal parakeratosis. The lower half of the epidermis shows disorderly maturation of keratinocytes with nuclear pleomorphism. The dermis shows a band-like, chronic inflammatory infiltrate with occasional apoptotic keratinocytes and some basal vacuolar alteration. Specimen D. SKIN, right post upper arm: Attached to the undersurface of the epidermis, there are small aggregates of basaloid cells with a high nuclear to cytoplasmic ratio and peripheral palisading. 5 4:[address] [facility] DERMATOPATHOLOGY LABORATORY Disclaimer An external and internal positive and negative controls are appropriate for the histochemical, immunohistochemical and immunofluorescence stain(s) in this case (if any), except where stated explicitly. The performance characteristics of the stain(s) cited in this report were developed and its performance characteristic determined by the Dermatopathology Laboratory at [facility], directed by Dr. Jazmyne Hartman. These tests need not be, and therefore are not, approved by the [place] Food and Drug Administration. The tests are used for clinical purposes. Billing Codes Specimen Charges Stain Charges 35686 16790 53785 27769 1 1 1 1 5 4:[address] [facility] DERMATOPATHOLOGY LABORATORY Embedded Images 5 4:[address] [facility] DERMATOPATHOLOGY LABORATORY Pathology/Cytology TISSUE SPECIMEN FROM SKIN / Unknown 07/24/2024 2:01 PM SENIOR JAVA UI DEVELOPER 07/25/2024 3:12 PM SENIOR JAVA UI DEVELOPER Miscellaneous samples (specimen) TISSUE SPECIMEN FROM SKIN / Unknown 07/24/2024 2:01 PM SENIOR JAVA UI DEVELOPER 07/25/2024 3:12 PM SENIOR JAVA UI DEVELOPER Miscellaneous samples (specimen) TISSUE SPECIMEN FROM SKIN / Unknown 07/24/2024 2:01 PM SENIOR JAVA UI DEVELOPER 07/25/2024 3:12 PM SENIOR JAVA UI DEVELOPER Miscellaneous samples (specimen) TISSUE SPECIMEN FROM SKIN / Unknown 07/24/2024 2:01 PM SENIOR JAVA UI DEVELOPER 07/25/2024 3:12 PM SENIOR JAVA UI DEVELOPER Litzy Colunga LAB - PATHOLOGY/CYTOLOGY ORDERABLES Final Result DERMATOPATHOLOGY LABORATORY [facility] - Department of Dermatology [facility] Medicine [address] [place] [address], [address] [phone] documented in this encounter Visit Diagnoses Not on filedocumented in this encounter Care Teams Brine Tank Tender Relationship Specialty Start Date End Date Tori Dyer DO [address] [place] [address] PCP - General 06/14/22 Mao Keller MD Orthopedic Surgery 08/24/11 Ishan Bradley DO Orthopedic Surgery 10/07/13 [place] [id number] [address] [address] Orthopedic Surgery 10/26/15 documented as of this encounter
[2025-06-09 12:55] LABS: Hematocrit 39.9 % (37.0-47.0); Hemoglobin 12.6 g/dL (12.0-15.0); Mean Corpuscular HGB Conc 31.6 g/dl (32-36); Mean Corpuscular Hemoglobin 30.1 pg (26-34); Mean Corpuscular Volume 95.5 fl (80-100); Platelet Count Result 213 k/mm3 (150-375); Red Blood Count 4.18 M/mm3 (4.2-5.4); White Blood Count 5.2 K/mm3 (4.5-10.0)
[2025-06-09 13:04] LABS: Alanine Aminotransferase 27 U/L (6-35); Albumin Level 4.3 g/dL (3.5-5.1); Alkaline Phosphatase 90 U/L (38-126); Anion Gap 6 mmol/L (4-12); Aspartate Amino Transferase 77 U/L (14-36); Bilirubin,Total 0.8 mg/dL (0.2-1.3); Blood Urea Nitrogen 14 mg/dL (7-17); Calcium 9.8 mg/dL (8.4-10.2); Carbon Dioxide 29 mmol/L (22-30); Chloride 104 mmol/L (98-107); Cholesterol 151 mg/dL (0-200); Estimated Glomerular Filt Rate > 60; Glucose 103 mg/dL (65-110); HDL Direct 46 mg/dL; Potassium 4.3 mmol/L (3.4-5.0); Sodium 139 mmol/L (137-145); Total Protein 7.8 g/dL (6.3-8.2); Triglycerides 133 mg/dL (<150)
[2025-06-09 13:41] LABS: Thyroid Stimulating Hormone 3.490 uIU/mL (0.465-4.680)
[2025-06-09 13:56] LABS: Hemoglobin A1C 4.8 % (<5.7)
== END 2025-06-09 08:19 | disposition home or self-care (01) ==
PROVIDERS: PCP Family Medicine; Visit Provider Family Medicine
DX: E55.9 Vitamin D deficiency, unspecified (principal); I10 Essential (primary) hypertension; E78.5 Hyperlipidemia, unspecified; R73.01 Impaired fasting glucose; E03.9 Hypothyroidism, unspecified
CPT/HCPCS: 36415; 80053; 80061; 82306; 83036; 84443; 85027